=== PATIENT | female | born 1945 | race Caucasian/White ===

== ENCOUNTER 2020-11-09 10:38 | Outpatient (CLI) | payer MEDICARE, OTHER, SELFPAY ==
--- NOTE | 2020-11-09 10:43 | MM_ITS ---
WS: [id number] BILATERAL SCREENING DIGITAL MAMMOGRAM WITH CAD HISTORY: SCREENING COMPARISON: 09/09/2019, 09/01/2018, 08/21/2017 Bilateral CC and MLO views submitted. Computer aided detection analyzed. Breast composition: There are scattered areas of fibroglandular density. No suspicious masses, microc alcifications or architectural distortion. Benign breast arterial calcifications. Asymmetry central t o the nipple on the RIGHT CC projection on the posterior breast is similar to 2017. MM/[id number] IMPRESSION: BI-RADS: 2-Benign FOLLOW UP: 1 Year Follow-up
== END 2020-11-09 10:39 | disposition home or self-care (01) ==
LOC: RADSHAW 10:42
PROVIDERS: Family Provider Nurse Practitioner Family; Visit Provider Nurse Practitioner Family
DX: Z12.31 Encounter for screening mammogram for malignant neoplasm of breast (principal)
CPT/HCPCS: 77067

== ENCOUNTER → 2021-09-04 09:45 | Outpatient (BNVA) | payer MEDICARE, OTHER, SELFPAY | PROVIDERS: Family Provider Nurse Practitioner Family; PCP Nurse Practitioner Family; Visit Provider Nurse Practitioner Family | DX: R30.0 Dysuria (principal); N39.0 Urinary tract infection, site not specified | CPT/HCPCS: 87077; 87086; 87184 ==

== ENCOUNTER 2022-01-10 10:38 | Outpatient (CLI) | payer MEDICARE, OTHER, SELFPAY ==
--- NOTE | 2022-01-10 10:54 | MM_ITS ---
WS: [id number] BILATERAL 3D TOMOSYNTHESIS DIGITAL SCREENING MAMMOGRAPHY WITH CAD CLINICAL INFORMATION: SCREENING HISTORY: Screening mammogram. No current complaints. COMPARISON: November 09, 2020 TECHNIQUE: Bilateral CC and MLO views. FINDINGS: Scattered fibroglandular densities bilaterally. Punctate calcifications. Vascular calcifications. No suspicious focal mass, asymmetry, calcifications, or architectural distortion. No evidence of maligna ncy. MM/[place] [id number] IMPRESSION: BI-RADS: 2-Benign FOLLOW UP: 1 Year Follow-up Recommend return to annual screening mammography.
== END 2022-01-10 10:39 | disposition home or self-care (01) ==
LOC: RADSHAW 10:43
PROVIDERS: PCP Nurse Practitioner Family; Visit Provider Nurse Practitioner Family
DX: Z12.31 Encounter for screening mammogram for malignant neoplasm of breast (principal)
CPT/HCPCS: 77063; 77067

== ENCOUNTER 2022-01-20 11:04 | Inpatient (IN) | payer MEDICARE, OTHER, SELFPAY ==
[2022-01-20] VITALS (19 sets, daily range): BP systolic 110–187; BP diastolic 54–100; PULSE 56–97; RESP 14–18; TEMP 36.2–37.5; O2SAT 93–98; BMI 25.0
--- NOTE | 2022-01-20 | SCC_ITS ---
Procedure done: IM nail for right IT fracture 73.7 seconds of fluoroscopic guidance, for a cumulative dose of 12.51 mGy, was provided to Dr. Albert by the radiology department. C-arm images of the right hip were saved for the patient's permanent record. [facility]
--- NOTE | 2022-01-20 | XR_ITS ---
WS: [id number] Exam: XR hip RT 2-3V wo/w pel* [id number] Date/Time of Exam: 01/20/2022 6:17 PM Reason For Exam: OR PICS AP and lateral intraoperative C-arm images of the right hip are submitted for evaluation. Previously noted comminuted intertrochanteric fracture has been stabilized with an intramedullary jojo and femoral neck screw. The fracture appears to be stabilized in satisfactory position for healing. An additional orthopedic plate and screws partially visualized in the mid femur. No other significant finding on this limited series.
--- NOTE | 2022-01-20 11:47 | XR_ITS ---
WS: [id number] Exam: XR hip RT 2-3V wo/w pel* [id number] Date/Time of Exam: 01/20/2022 11:56 AM Reason For Exam: fall pain There is a comminuted intertrochanteric fracture of the right hip. There is avulsion and medial separ ation of the lesser trochanter. No other fractures are seen. Moderate degenerative narrowing of the j oint compartment. A cortical plate and screws are partially visualized in the upper femoral diaphysis . XR/XR hip RT 2-3V wo/w pel* [id number] IMPRESSION: 1. Comminuted intertrochanteric fracture with slight coxa vera deformity. 2. Moderate degenerative narrowing of the joint compartment. Osteopenia.
--- NOTE | 2022-01-20 12:21 | XR_ITS ---
WS: [id number] Exam: XR chest 1V portable [id number] Date/Time of Exam: 01/20/2022 12:26 PM Reason For Exam: dyspnea/cough Comparison 10/22/2019. The lungs are clear and fully expanded. Heart size is within normal limits. Probable large hiatal her bernice. No pleural effusion. The mediastinum is normal in contour. Regional bony elements are intact. XR/XR chest 1V portable [id number] IMPRESSION: 1. No acute cardiopulmonary finding. 2. Probable large hiatal hernia.
--- NOTE | 2022-01-20 12:21 | ECG_ITS ---
[facility] Test Date: 2022-01-20 Pat Name: Samir Gillepsie Department: Room: Gender: Female [employer] Technician: : 1945 Requested By: Manohar Hobson Order Number: [id number] Shruti MD: Stef Bellamy M.D. Measurements Intervals [place] Rate: 56 P: 42 NC: 189 QRS: 16 QRSD: 99 T: 56 QT: 446 QTc: 432 Interpretive Statements SINUS BRADYCARDIA NONSPECIFIC T-WAVE ABNORMALITY Compared to ECG 03/27/2016 21:03:15 Sinus rhythm no longer present T-wave abnormality still present Electronically Signed On 01-20-2022 22:02:45 CDT by Stef Bellamy M.D. [id number]
--- NOTE | 2022-01-20 12:24 | W.ED.FALL ---
HPI - Fall General: Chief Complaint: Fall Stated Complaint: FALL, R HIP, R UPPER LEG PAIN Time Seen by Provider: 01/20/22 11:07 Source: patient Mode of arrival: EMS Limitations: no limitations History of Present Illness: 76-year-old female presents emergency room complaining of right hip pain. 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 She eventually did pull herself up and leaned against the building EMS was called on arrival there she is not able to bear weight she was noted to have an externally rotated and shortened right leg. She previous had a right knee arthroplasty. She not strike her head she not lose consciousness she is not on any anticoagulants. MD complaint: fall Onset (ago): minute(s) Fall from: standing Fall witnessed: no Place fall occurred: home Loss of consciousness: None Prolonged down time: no Symptoms prior to fall: none Context: tripped/slipped Location of injury - extremities: Right: thigh (Hip) Severity: mild Quality: sharp Associated symptoms-after fall: Denies abdominal pain, chest pain, confusion, difficulty walking, headache(s), hematuria, lightheadedness, neck pain, numbness, short of breath, vertigo or weakness Review of Systems Const: Denies: fever(s) or chills ENMT: Denies: throat pain, nasal discharge or nasal congestion Card: Denies: chest pain, palpitations or lightheadedness Resp: Denies: dyspnea, productive cough, non-productive cough or wheezing GI: Denies: abdominal pain, nausea or vomiting : Denies: difficulty voiding, dysuria, urinary frequency, urinary urgency or hematuria Musc: Reports: extremity pain; Denies: neck pain or back pain Neuro: Denies: headache(s), difficulty walking, vertigo or confusion PFSH ED PFSH: Medical History Blind right eye Bradycardia Cataract COVID-19 vaccine administered Moderna x 2 doses GERD (gastroesophageal reflux disease) Gout History of GI bleed related to nsaid use HTN (hypertension) Hypothyroidism Osteoarthritis Osteoporosis Urinary incontinence Surgical History History of hysterectomy History of open reduction and internal fixation (ORIF) procedure Right femur History of total left knee replacement (~2015) History of total right knee replacement (~2013) Family History Mother Cancer leukemia Father CAD (coronary artery disease) Family/Other Diabetes Denies family history of Stroke Social History Smoking and tobacco status: never smoked Alcohol intake: never Substance/Drug Use: never Marital status: / Female Reproductive History: Date of last menstrual period: 08/23/21 Physical Exam Const: GENERAL APPEARANCE: cooperative and comfortable ORIENTATION/CONSCIOUSNESS: Yes awake, Yes oriented to person, Yes oriented to place and Yes oriented to time HENMT: COMMON NORMALS: normocephalic, atraumatic and hearing grossly normal bilaterally HEAD & SCALP: normocephalic and atraumatic Neck/C-Spine: COMMON NORMALS: no JVD Resp: COMMON NORMALS: normal respiratory effort, No retractions, No use of accessory muscles and clear to auscultation bilaterally AUSCULTATION: clear to auscultation bilaterally Cardio: COMMON NORMALS: no JVD, regular rate, regular rhythm and No murmurs present (Cardio) RATE: regular rate RHYTHM: regular rhythm GI: COMMON NORMALS: Soft to palpation and No hepatosplenomegaly present AUSCULTATION: Yes normoactive bowel sounds PALPATION: Yes Soft to palpation, No Tenderness to palpation present (GI), No Guarding due to palpation present (GI) and Yes No hepatosplenomegaly present Extremity: COMMON NORMALS: normal to inspection, capillary refill normal, no clubbing, cyanosis or edema, no calf tenderness and no pedal edema OTHER: Right leg externally rotated and shortened neurovascularly intact. Neuro: SENSORIUM/ORIENTATION: Yes oriented to person, Yes oriented to place and Yes oriented to time Skin: COMMON NORMALS: no rashes or lesions noted GENERAL SKIN EXAM: no rashes or lesions noted Course Vital Signs: Vital signs: Vital Signs Temperature 98.2 F 01/22/22 15:53 Pulse Rate 69 01/22/22 15:53 Respiratory Rate 13 01/22/22 15:53 Blood Pressure 107/59 01/22/22 15:53 Pulse Oximetry 96 01/22/22 15:53 MDM - Fall Medical Decision Making Right intertrochanteric hip fracture discussed with Dr. Albert he plans to do the procedure today yet. Will discuss with Duy to admit for medical management. Medical Records I reviewed the patient's medical records. Lab Data I reviewed the patient's lab results. : 01/22/22 04:42 01/21/22 06:00 Radiology Impressions Hip/Pelvis X-Ray 01/20/22 11:47 IMPRESSION: 1. Comminuted intertrochanteric fracture with slight coxa vera deformity. 2. Moderate degenerative narrowing of the joint compartment. Osteopenia. Chest X-Ray 01/20/22 12:21 IMPRESSION: 1. No acute cardiopulmonary finding. 2. Probable large hiatal hernia. Laboratory Results WBC 12.5 10^3/uL (4.0-10.0) H 01/20/22 11:50 RBC 4.28 10^6/uL (4.1-5.3) 01/20/22 11:50 Hgb 14.0 g/dL (11.5-15.3) 01/20/22 11:50 Hct 42.8 % (37.0-47.0) 01/20/22 11:50 MCV 100.0 fl (81-99) H 01/20/22 11:50 MCH 32.7 pg (28.0-34.0) 01/20/22 11:50 MCHC 32.7 g/dL (30.0-36.0) 01/20/22 11:50 RDW 14.5 % (12.1-15.1) 01/20/22 11:50 Plt Count 302 10^3/cmm (130-400) 01/20/22 11:50 MPV 10.2 fL (7.4-10.4) 01/20/22 11:50 Neut % (Auto) 84.6 % 01/20/22 11:50 Lymph % (Auto) 10.1 % 01/20/22 11:50 [place] % (Auto) 3.7 % 01/20/22 11:50 Eos % (Auto) 0.6 % 01/20/22 11:50 Baso % (Auto) 0.5 % 01/20/22 11:50 Neut # (Auto) 10.60 10^3/uL (1.8-7.7) H 01/20/22 11:50 Lymph # (Auto) 1.3 10^3/uL (0.8-4.8) 01/20/22 11:50 [place] # (Auto) 0.5 10^3/uL (0.2-0.9) 01/20/22 11:50 Eos # (Auto) 0.1 10^3/uL (0.0-0.8) 01/20/22 11:50 Baso # (Auto) 0.1 10^3/uL (0.0-0.1) 01/20/22 11:50 Nucleated RBC % (auto) 0 % 01/20/22 11:50 Nucleated RBCs # 0.0 /100WBC 01/20/22 11:50 Sodium 138 mmol/L (136-145) 01/20/22 11:50 Potassium 4.2 mmol/L (3.5-5.1) 01/20/22 11:50 Chloride 99 mmol/L (98-107) 01/20/22 11:50 Carbon Dioxide 27 mmol/L (22-29) 01/20/22 11:50 Anion Gap 16.2 (5-19) 01/20/22 11:50 BUN 19 mg/dL (8-23) 01/20/22 11:50 Creatinine 1.0 mg/dL (0.5-0.9) H 01/20/22 11:50 GFR Calculation Not Reportable 01/20/22 11:50 Glucose 143 mg/dL (65-115) H 01/20/22 11:50 Calculated Osmolality 291 mOsm/kg (285-295) 01/20/22 11:50 Calcium 10.3 mg/dL (8.5-10.5) 01/20/22 11:50 Total Bilirubin 0.3 mg/dL (0.15-1.2) 01/20/22 11:50 AST 18 U/L (0-32) 01/20/22 11:50 ALT 16 U/L (0-33) 01/20/22 11:50 Alkaline Phosphatase 80 IU/L (35-105) 01/20/22 11:50 Total Protein 7.3 g/dL (6.6-8.7) 01/20/22 11:50 Albumin 4.6 g/dL (3.5-5.2) 01/20/22 11:50 Globulin 2.7 g/dL (1.3-4.6) 01/20/22 11:50 Urine Color Yellow (Yellow) 01/20/22 05:52 Urine Appearance Hazy (CLEAR) A 01/20/22 05:52 Urine pH 5 (5-7) 01/20/22 05:52 Ur Specific [place] 1.020 (1.005-1.030) 01/20/22 05:52 Urine Protein Neg (Negative) 01/20/22 05:52 Urine Glucose (UA) Norm (Normal) 01/20/22 05:52 Urine Ketones Negative (Negative) 01/20/22 05:52 Urine Blood Neg (Negative) 01/20/22 05:52 Urine Nitrate Negative (Negative) 01/20/22 05:52 Urine Bilirubin Neg (Negative) 01/20/22 05:52 Urine Urobilinogen Norm mg/dL (Negative) 01/20/22 05:52 Ur Leukocyte Esterase 2+ (Negative) H 01/20/22 05:52 Urine RBC None /hpf (0-2) 01/20/22 05:52 Urine WBC >100 /hpf (0-5) H 01/20/22 05:52 Ur Squamous Epith Cells 0-4 /hpf (0-5) H 01/20/22 05:52 Amorphous Sediment Not Reportable 01/20/22 05:52 Urine Bacteria 1+ /hpf (NONE) H 01/20/22 05:52 Discharge Plan Discharge Patient Disposition: Admitted As Inpatient Admit Provider: Sherley Marmolejo Clinical Impression: Thyroid disease Closed intertrochanteric fracture of right femur Qualifiers: Encounter type: initial encounter Fracture alignment: displaced Qualified Code(s): S72.141A - Displaced intertrochanteric fracture of right femur, initial encounter for closed fracture HTN (hypertension) Qualifiers: Hypertension type: primary hypertension Qualified Code(s): I10 - Essential (primary) hypertension GERD (gastroesophageal reflux disease) Qualifiers: Esophagitis presence: without esophagitis Qualified Code(s): K21.9 - Gastro-esophageal reflux disease without esophagitis Condition: Stable Coding Level of Care Code ED Patrol Police Lieutenant for Chg Fwd Exam Comprehensive
[2022-01-20 12:28] LABS: Basophils # 0.1 10^3/uL (0.0-0.1); Basophils % 0.5 %; Eosinophils # 0.1 10^3/uL (0.0-0.8); Eosinophils % 0.6 %; Hematocrit 42.8 % (37.0-47.0); Lymphocytes # 1.3 10^3/uL (0.8-4.8); Lymphocytes % 10.1 %; Mean Corpuscular HGB Conc 32.7 g/dL (30.0-36.0); Mean Corpuscular Hemoglobin 32.7 pg (28.0-34.0); Mean Platelet Volume 10.2 fL (7.4-10.4); Monocytes # 0.5 10^3/uL (0.2-0.9); Monocytes % 3.7 %; Neutrophils % 84.6 %; Nucleated Red Blood Cells % 0 %; Platelet Count 302 10^3/cmm (130-400); Red Blood Count 4.28 10^6/uL (4.1-5.3); Red Cell Distribution Width 14.5 % (12.1-15.1); White Blood Count 12.5 10^3/uL (4.0-10.0)
[2022-01-20 12:49] LABS: Alanine Aminotransferase 16 U/L (0-33); Albumin Level 4.6 g/dL (3.5-5.2); Alkaline Phosphatase 80 IU/L (35-105); Anion Gap 16.2 (5-19); Aspartate Amino Transferase 18 U/L (0-32); Blood Urea Nitrogen 19 mg/dL (8-23); Calcium 10.3 mg/dL (8.5-10.5); Carbon Dioxide 27 mmol/L (22-29); Chloride 99 mmol/L (98-107); Globulin 2.7 g/dL (1.3-4.6); Glucose 143 mg/dL (65-115); Osmolality Calculated 291 mOsm/kg (285-295); Potassium 4.2 mmol/L (3.5-5.1); Sodium 138 mmol/L (136-145); Total Bilirubin 0.3 mg/dL (0.15-1.2); Total Protein 7.3 g/dL (6.6-8.7)
[2022-01-20] MEDS: ondansetron 2 mg/ML SDV 2 mL 4 MG IVP (13:09)
[2022-01-20] MEDS: morphine 4 mg/mL SDV 1 mL IVP (13:09)
--- NOTE | 2022-01-20 14:33 | P.HP_ITS ---
Providers/Chief Complaint Admitting Physician: Sherley Marmolejo MD Primary Care Provider: Janeth Morton APN Chief Complaint: FALL, R HIP, R UPPER LEG PAIN History of Present Illness Samir Gillespie is a 76 year old female who presented to the emergency room with right lower extremity and hip pain after a fall. She was walking out to the barn to feed her cats when she missed stepped over some concrete and subsequently spun around and fell down landing on her right hip. She had a po cket knife in her pocket. She had also had a can of cat food in her pocket but it came out before she landed on it. The knife was not open. She was unable to get up. She had a life alert and was able to get help with this. EMS came out and stabilized her. One of them actually also fed the cats. Patient denies any preceding symptoms reporting that this is simply a mechanical fall. She is no rmally fairly active taking care of things around her property including gardening, walking out to the barn to wash her close and attending to all of her own ADLs. In the emergency room she was found to have comminuted intratrochanteric fracture of the right leg. She has had previous right knee re placement as well as right femur fracture requiring surgical intervention. No history of anesthesia difficulties, bleeding disorder, clotting disorder, renal dysfunction, coronary artery disease or pulmonary disease. Daughter indicates that she did have some mental status changes postoperatively after her femur fracture repair which she was very confused and required a sitter for safety. Patient's primary complaint is that of discomfort with any amount of movement. Patient received 2 doses of COVID vaccine, has not had COVID. Review of Systems Const: Denies: fever(s) or chills Eyes: Reports: other (blind right eye, can see light) ENMT: Denies: throat pain or nasal congestion Card: Denies: chest pain, palpitations, edema, dyspnea on exertion or orthopnea Resp: Denies: dyspnea, productive cough, non-productive cough or chest congestion GI: Denies: abdominal pain, nausea, vomiting, diarrhea, constipation or hematochezia : Denies: difficulty voiding Musc: Reports: back pain (after being in bed for a while here in ER) and extremity pain (right hip) Skin/Breast: Denies: rash, pruritus or sores Neuro: Denies: numbness in extremities, weakness in extremities or difficulty walking Endo: Denies: tired all the time Cullen/Lymph: Denies: easy bruising or easy bleeding All/Imm: Reports: seasonal rhinorrhea Medications/Allergies Home Medications Medication Instructions Recorded Confirmed Last Taken Type allopurinol 300 mg tablet 300 mg PO QA 04/18/21 01/20/22 01/20/22 08:30 History levothyroxine 88 mcg tablet 88 mcg PO DAILY@04/18/21 01/20/22 01/19/22 History lisinopril 10 mg tablet 10 mg PO QA 04/18/21 01/20/22 01/20/22 08:30 History multivitamin 1 tab PO QA 04/18/21 01/20/22 01/20/22 History omega-3 fatty acids 1,000 mg 1,000 mg PO QA 04/18/21 01/20/22 01/20/22 08:30 History capsule (Fish Oil Concentrate) oxybutynin chloride 10 mg 10 mg PO QA 04/18/21 01/20/22 01/20/22 08:30 History tablet,extended release 24 hr pantoprazole 40 mg tablet,delayed 40 mg PO QA 04/18/21 01/20/22 01/20/22 08:30 History release cetirizine 10 mg capsule (All Day 10 mg PO DAILY 10/16/21 01/20/22 01/20/22 08:30 History Allergy (cetirizine)) Prevagen 1 cap PO QA 01/20/22 01/20/22 01/20/22 History cyanocobalamin (vitamin B-12) 1,000 mcg SUBLINGUAL QA 01/20/22 01/20/22 01/20/22 History 1,000 mcg sublingual tablet dexamethasone 0.5 mg/5 mL oral See Rx Instructions .ROUTE .COMPLEX 01/20/22 01/20/22 12/24/21 History elixir see pharmacy comment timolol maleate 0.5 % eye drops 1 drp OPHTHALMIC (EYE) BEDTIME 01/20/22 01/20/22 01/19/22 History Allergies Allergy/AdvReac Type Severity Reaction Status Date / Time celecoxib [From Celebrex] Allergy Unknown Verified 01/20/22 13:02 NSAIDS (Non-Steroidal Allergy Unknown Verified 01/20/22 13:02 Anti-Inflamma sulfamethoxazole Allergy Unknown Verified 01/20/22 13:02 [From Bactrim] trimethoprim [From Bactrim] Allergy Unknown Verified 01/20/22 13:02 PFSH Acute PFSH: Medical History (Updated 01/20/22 @ 15:41 by Sherley Marmolejo MD) Blind right eye Bradycardia Cataract COVID-19 vaccine administered Moderna x 2 doses GERD (gastroesophageal reflux disease) Gout History of GI bleed related to nsaid use HTN (hypertension) Hypothyroidism Osteoarthritis Osteoporosis Urinary incontinence Surgical History (Updated 01/20/22 @ 15:17 by Sherley Marmolejo MD) History of hysterectomy History of open reduction and internal fixation (ORIF) procedure Right femur History of total left knee replacement (~2015) History of total right knee replacement (~2013) Family History (Updated 01/20/22 @ 14:39 by Sherley Marmolejo MD) Mother Cancer leukemia Father CAD (coronary artery disease) Family/Other Diabetes Denies family history of Stroke Social History (Updated 01/20/22 @ 14:39 by Sherley Marmolejo MD) Smoking and tobacco status: never smoked Alcohol intake: never Substance/Drug Use: never Marital status: / Female Reproductive History: Date of last menstrual period: 08/23/21 Vitals/I&O/Wt Last Vital Signs Temp 98.1 F 01/20/22 11:35 Pulse 61 01/20/22 13:22 Resp 16 01/20/22 13:22 BP 124/54 01/20/22 13:22 Pulse Ox 95 01/20/22 13:22 Weight last 48 hrs Weight 72.575 kg Physical Exam Narrative: Constitutional: Awake and alert, cooperative HEENT: Normocephalic, atraumatic, extraocular movements are intact, pupils are reactive, oropharynx with dry mucous membranes but otherwise clear Neck: Supple Respiratory: Clear to auscultation bilaterally without any rales rhonchi or wheezes Cardiovascular: Regular rate and rhythm, no murmurs, gallops or rubs Abdomen: Soft, nontender, positive bowel sounds : Presently deferred Extremities: Right lower extremity externally rotated and shortened, still has her jeans on some unable to visualize the right hip for signs of bruising but has pain with any degree of movement in the right groin radiating through, trace edema pretibial bilaterally. Has bony hypertrophy of Heberden's and Les's nodes bilateral hands without any warmth or erythema acutely noted and no definitive tophi appreciated at the joints. Skin: Visible skin dry, minimal minor bruises or scratches although area of trauma not currently able to be visualized Neuro: Speech is clear, face symmetric, moves both hands, wiggles toes bilaterally with sensation intact at both toes to touch Psych: Normal affect Data : 01/20/22 11:50 01/20/22 11:50 Other Labs: Radiology Impressions Hip/Pelvis X-Ray 01/20/22 11:47 IMPRESSION: 1. Comminuted intertrochanteric fracture with slight coxa vera deformity. 2. Moderate degenerative narrowing of the joint compartment. Osteopenia. Chest X-Ray 01/20/22 12:21 IMPRESSION: 1. No acute cardiopulmonary finding. 2. Probable large hiatal hernia. Laboratory Results WBC 12.5 10^3/uL (4.0-10.0) H 01/20/22 11:50 RBC 4.28 10^6/uL (4.1-5.3) 01/20/22 11:50 Hgb 14.0 g/dL (11.5-15.3) 01/20/22 11:50 Hct 42.8 % (37.0-47.0) 01/20/22 11:50 MCV 100.0 fl (81-99) H 01/20/22 11:50 MCH 32.7 pg (28.0-34.0) 01/20/22 11:50 MCHC 32.7 g/dL (30.0-36.0) 01/20/22 11:50 RDW 14.5 % (12.1-15.1) 01/20/22 11:50 Plt Count 302 10^3/cmm (130-400) 01/20/22 11:50 MPV 10.2 fL (7.4-10.4) 01/20/22 11:50 Neut % (Auto) 84.6 % 01/20/22 11:50 Lymph % (Auto) 10.1 % 01/20/22 11:50 [place] % (Auto) 3.7 % 01/20/22 11:50 Eos % (Auto) 0.6 % 01/20/22 11:50 Baso % (Auto) 0.5 % 01/20/22 11:50 Neut # (Auto) 10.60 10^3/uL (1.8-7.7) H 01/20/22 11:50 Lymph # (Auto) 1.3 10^3/uL (0.8-4.8) 01/20/22 11:50 [place] # (Auto) 0.5 10^3/uL (0.2-0.9) 01/20/22 11:50 Eos # (Auto) 0.1 10^3/uL (0.0-0.8) 01/20/22 11:50 Baso # (Auto) 0.1 10^3/uL (0.0-0.1) 01/20/22 11:50 Nucleated RBC % (auto) 0 % 01/20/22 11:50 Nucleated RBCs # 0.0 /100WBC 01/20/22 11:50 Sodium 138 mmol/L (136-145) 01/20/22 11:50 Potassium 4.2 mmol/L (3.5-5.1) 01/20/22 11:50 Chloride 99 mmol/L (98-107) 01/20/22 11:50 Carbon Dioxide 27 mmol/L (22-29) 01/20/22 11:50 Anion Gap 16.2 (5-19) 01/20/22 11:50 BUN 19 mg/dL (8-23) 01/20/22 11:50 Creatinine 1.0 mg/dL (0.5-0.9) H 01/20/22 11:50 GFR Calculation Not Reportable 01/20/22 11:50 Glucose 143 mg/dL (65-115) H 01/20/22 11:50 Calculated Osmolality 291 mOsm/kg (285-295) 01/20/22 11:50 Calcium 10.3 mg/dL (8.5-10.5) 01/20/22 11:50 Total Bilirubin 0.3 mg/dL (0.15-1.2) 01/20/22 11:50 AST 18 U/L (0-32) 01/20/22 11:50 ALT 16 U/L (0-33) 01/20/22 11:50 Alkaline Phosphatase 80 IU/L (35-105) 01/20/22 11:50 Total Protein 7.3 g/dL (6.6-8.7) 01/20/22 11:50 Albumin 4.6 g/dL (3.5-5.2) 01/20/22 11:50 Globulin 2.7 g/dL (1.3-4.6) 01/20/22 11:50 A&P Assessment and plan (1) Fall: Status: Acute Qualifiers: Encounter type: initial encounter Qualified Code(s): W19.XXXA - Unspecified fall, initial encounter (2) Closed intertrochanteric fracture of right femur: Status: Acute Qualifiers: Encounter type: initial encounter Fracture alignment: displaced Qualified Code(s): S72.141A - Displaced intertrochanteric fracture of right femur, initial encounter for closed fracture (3) Chronic steroid use: Intermittent dexamethasone injections Status: Acute (4) Osteoporosis: Status: Chronic Qualifiers: Osteoporosis type: other Presence of current pathological fracture: with current pathological fracture Encounter type: initial encounter Qualified Code(s): M80.80XA - Other osteoporosis with current pathological fracture, unspecified site, initial encounter for fracture (5) HTN (hypertension): Status: Chronic Qualifiers: Hypertension type: primary hypertension Qualified Code(s): I10 - Essential (primary) hypertension (6) Bradycardia: Status: Chronic (7) Hypothyroidism: Status: Chronic Qualifiers: Hypothyroidism type: acquired Qualified Code(s): E03.9 - Hypothyroidism, unspecified (8) Gout: Status: Chronic Qualifiers: Chronicity: chronic (9) GERD (gastroesophageal reflux disease): Status: Chronic Qualifiers: Esophagitis presence: without esophagitis Qualified Code(s): K21.9 - Gastro-esophageal reflux disease without esophagitis (10) Osteoarthritis: Status: Chronic Qualifiers: Osteoarthritis location: multiple joints Osteoarthritis type: primary Qualified Code(s): M15.9 - Polyosteoarthritis, unspecified Plan Inpatient admission Orthopedic consultation for surgical intervention N.p.o. until surgery can be done, tentative plan for later today Pain control as needed Bowel regimen Check urinalysis [place] catheter placement perioperatively Discussed with patient risk of fractures with chronic steroid use Vitamin D and calcium supplementation Monitor for need to stress dose steroids, has received dexamethasone monthly for the last 2 months and was due to get another dose this coming Thursday Hold home lisinopril preoperatively, monitor blood pressures Telemetry monitoring x24 hours, has known bradycardia, asymptomatic, has been seen by Dr. Brush in the past Continue home levothyroxine Continue home allopurinol Continue home PPI Continue home cetirizine for allergies, oxybutynin and timolol eyedrops Continue multivitamin Currently with SCDs for DVT prophylaxis though anticipate transition to Lovenox postoperatively Anticipate disposition to skilled facility for rehabilitation prior to eventual discharge back home. Has been an active lady taking care of her property and ADLs without difficulties which hopefully will build her well in the recovery process. Findings, concerns and plans were discussed with patient as well as her daughter and both were given an opportunity to ask questions Full code Attestations Medical Necessity Statement*: Anticipated stay greater than two midnights in this patient with fracture after a fall at home that will require surgical intervention. She has had previous bilateral knee replacement and right femur fracture requiring surgical intervention now with right hip fracture that will also require repair. Plans are as indicated. 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 Fall W19.XXXA Encounter type: initial encounter Closed intertrochanteric fracture of right femur S72.141A Encounter type: initial encounter Fracture alignment: displaced Chronic steroid use Osteoporosis M80.80XA Osteoporosis type: other Presence of current pathological fracture: with current pathological fracture Encounter type: initial encounter HTN (hypertension) I10 Hypertension type: primary hypertension GERD (gastroesophageal reflux disease) K21.9 Esophagitis presence: without esophagitis Gout M10.9 Chronicity: chronic Hypothyroidism E03.9 Hypothyroidism type: acquired Bradycardia R00.1 Osteoarthritis M15.9 Osteoarthritis location: multiple joints Osteoarthritis type: primary
--- NOTE | 2022-01-20 16:29 | P.ANESASSM_ITS ---
Pre-Anesthetic Assessment Height/Weight: Height 1.7 m Weight 72.575 kg Temp Pulse Resp BP Pulse Ox 98.1 F 61 16 124/54 95 01/20/22 11:35 01/20/22 13:22 01/20/22 13:22 01/20/22 13:22 01/20/22 13:22 Preop Diagnosis: Right femur fracture Operation Date: 01/20/22 20:00 Proposed Procedures p Trochanteric Femoral Nail(Right) - Good Albert, DO Familial anesthetic complications: Post operative confusion lasting 3 days Was Beta Sherice taken within 24 hours: N/A Was Clonidine taken within 24 hours: N/A Social No alcohol and No tobacco Exam alert, oriented x 3, clear to auscultation bilaterally and regular rate & rhythm Airway Submandibular: within normal limits Cervical ROM: within normal limits Mallampati: Class II Dentition: chipped Comments: Comments: Missing Pulmonary None reported CV/HEM Hypertension METS > 4 Sinus bradycardia Chronic Renal Insufficiency GI Gastroesophageal Reflux Disease Metabolic Thyroid Disease Musc/skel Osteoarthritis/DJD GoUT Neuropsych No LOC Anesthetic Plan ASA status: 3 Anesthesia: Anesthesia Evaluation and General Other: We discussed risk and benefits of general vs spinal anesthesia including DVT risk, infection, paralysis/catastrophic nerve injury, back bruising/pain, PDPH, conversion to general in case of spinal, PONV, sore throat (sometimes severe), corneal abrasion, positioning and peripheral nerve injuries, life threatening allergic reaction, post operative ICU admission requiring prolonged intubation, stroke, heart attack, , post operative delirium and/or post operative cognitive decline, and rare incidences of recall (under general anesthesia). Patient prefers general. Risk of > 500 ml blood loss (7ml/kg in children): No Medications/Allergies Home Medications Medication Instructions Recorded Confirmed Last Taken Type allopurinol 300 mg tablet 300 mg PO QAM 04/18/21 01/20/22 01/20/22 08:30 History levothyroxine 88 mcg tablet 88 mcg PO DAILY@04/18/21 01/20/22 01/19/22 History lisinopril 10 mg tablet 10 mg PO QAM 04/18/21 01/20/22 01/20/22 08:30 History multivitamin 1 tab PO QAM 04/18/21 01/20/22 01/20/22 History omega-3 fatty acids 1,000 mg 1,000 mg PO QAM 04/18/21 01/20/22 01/20/22 08:30 History capsule (Fish Oil Concentrate) oxybutynin chloride 10 mg 10 mg PO QAM 04/18/21 01/20/22 01/20/22 08:30 History tablet,extended release 24 hr pantoprazole 40 mg tablet,delayed 40 mg PO QAM 04/18/21 01/20/22 01/20/22 08:30 History release cetirizine 10 mg capsule (All Day 10 mg PO DAILY 10/16/21 01/20/22 01/20/22 08:30 History Allergy (cetirizine)) Prevagen 1 cap PO QAM 01/20/22 01/20/22 01/20/22 History cyanocobalamin (vitamin B-12) 1,000 mcg SUBLINGUAL QAM 01/20/22 01/20/22 01/20/22 History 1,000 mcg sublingual tablet dexamethasone 0.5 mg/5 mL oral See Rx Instructions .ROUTE .COMPLEX 01/20/22 01/20/22 12/24/21 History elixir see pharmacy comment timolol maleate 0.5 % eye drops 1 drp OPHTHALMIC (EYE) BEDTIME 01/20/22 01/20/22 01/19/22 History Allergies Allergy/AdvReac Type Severity Reaction Status Date / Time celecoxib [From Celebrex] Allergy Unknown Verified 01/20/22 13:02 NSAIDS (Non-Steroidal Allergy Unknown Verified 01/20/22 13:02 Anti-Inflamma sulfamethoxazole Allergy Unknown Verified 01/20/22 13:02 [From Bactrim] trimethoprim [From Bactrim] Allergy Unknown Verified 01/20/22 13:02 Additional Medication Information I personally reviewed home medication list and medications received day of admission thus far. [facility] Anesthesia Medical History Blind right eye Bradycardia Cataract COVID-19 vaccine administered Moderna x 2 doses GERD (gastroesophageal reflux disease) Gout History of GI bleed related to nsaid use HTN (hypertension) Hypothyroidism Osteoarthritis Osteoporosis Urinary incontinence Surgical History History of hysterectomy History of open reduction and internal fixation (ORIF) procedure Right femur History of total left knee replacement (~2015) History of total right knee replacement (~2013) Family History Mother Cancer leukemia Father CAD (coronary artery disease) Family/Other Diabetes Denies family history of Stroke Social History Smoking and tobacco status: never smoked Alcohol intake: never Substance/Drug Use: never Marital status: / Female Reproductive History Date of last menstrual period: 08/23/21 Data Anesthesia : 01/20/22 11:50 01/20/22 11:50 Short CBC 01/20/22 Range/Units 11:50 WBC 12.5 H (4.0-10.0) 10^3/uL Hgb 14.0 (11.5-15.3) g/dL Hct 42.8 (37.0-47.0) % MCV 100.0 H (81-99) fl Plt Count 302 (130-400) 10^3/cmm Neut % (Auto) 84.6 % Neut # (Auto) 10.60 H (1.8-7.7) 10^3/uL BMP 01/20/22 11:50 Sodium 138 Potassium 4.2 Chloride 99 Carbon Dioxide 27 BUN 19 Creatinine 1.0 H Glucose 143 H Calcium 10.3 Liver Function 01/20/22 Range/Units 11:50 Total Bilirubin 0.3 (0.15-1.2) mg/dL AST 18 (0-32) U/L ALT 16 (0-33) U/L Alkaline Phosphatase 80 (35-105) IU/L Albumin 4.6 (3.5-5.2) g/dL Cardiac Studies: Holter Monitor 01/04/21
--- NOTE | 2022-01-20 16:41 | PM.CONSULT ---
Providers/Reason For Consult Consulting Physician/Specialty*: hospitalist Reason for Consult*: right hip fx Attending Physician: Sherley Marmolejo MD Primary Care Provider: Janeth Morton APN History of Present Illness History of Present Illness Samir Gillespie is a 76 year old female right lower extremity and hip pain after a fall.? She was walking out to the barn to feed her cats when she missed stepped over some concrete and subsequently spun around and fell down landing on her right hip.?? Review of Systems Const: Denies: fever(s) or chills Eyes: Reports: other (blind right eye, can see light) ENMT: Denies: throat pain or nasal congestion Card: Denies: chest pain, palpitations, edema, dyspnea on exertion or orthopnea Resp: Denies: dyspnea, productive cough, non-productive cough or chest congestion GI: Denies: abdominal pain, nausea, vomiting, diarrhea, constipation or hematochezia : Denies: difficulty voiding Musc: Reports: back pain (after being in bed for a while here in ER) and extremity pain (right hip) Skin/Breast: Denies: rash, pruritus or sores Neuro: Denies: numbness in extremities, weakness in extremities or difficulty walking Endo: Denies: tired all the time Cullen/Lymph: Denies: easy bruising or easy bleeding All/Imm: Reports: seasonal rhinorrhea Medications/Allergies Home Medications Medication Instructions Recorded Confirmed Last Taken Type allopurinol 300 mg tablet 300 mg PO QA 04/18/21 01/20/22 01/20/22 08:30 History levothyroxine 88 mcg tablet 88 mcg PO DAILY@04/18/21 01/20/22 01/19/22 History lisinopril 10 mg tablet 10 mg PO QA 04/18/21 01/20/22 01/20/22 08:30 History multivitamin 1 tab PO QA 04/18/21 01/20/22 01/20/22 History omega-3 fatty acids 1,000 mg 1,000 mg PO QAM 04/18/21 01/20/22 01/20/22 08:30 History capsule (Fish Oil Concentrate) oxybutynin chloride 10 mg 10 mg PO QAM 04/18/21 01/20/22 01/20/22 08:30 History tablet,extended release 24 hr pantoprazole 40 mg tablet,delayed 40 mg PO QAM 04/18/21 01/20/22 01/20/22 08:30 History release cetirizine 10 mg capsule (All Day 10 mg PO DAILY 10/16/21 01/20/22 01/20/22 08:30 History Allergy (cetirizine)) Prevagen 1 cap PO QAM 01/20/22 01/20/22 01/20/22 History cyanocobalamin (vitamin B-12) 1,000 mcg SUBLINGUAL QAM 01/20/22 01/20/22 01/20/22 History 1,000 mcg sublingual tablet dexamethasone 0.5 mg/5 mL oral See Rx Instructions .ROUTE .COMPLEX 01/20/22 01/20/22 12/24/21 History elixir see pharmacy comment timolol maleate 0.5 % eye drops 1 drp OPHTHALMIC (EYE) BEDTIME 01/20/22 01/20/22 01/19/22 History Allergies Allergy/AdvReac Type Severity Reaction Status Date / Time celecoxib [From Celebrex] Allergy Unknown Verified 01/20/22 13:02 NSAIDS (Non-Steroidal Allergy Unknown Verified 01/20/22 13:02 Anti-Inflamma sulfamethoxazole Allergy Unknown Verified 01/20/22 13:02 [From Bactrim] trimethoprim [From Bactrim] Allergy Unknown Verified 01/20/22 13:02 PFSH Acute PFSH: Medical History Blind right eye Bradycardia Cataract COVID-19 vaccine administered Moderna x 2 doses GERD (gastroesophageal reflux disease) Gout History of GI bleed related to nsaid use HTN (hypertension) Hypothyroidism Osteoarthritis Osteoporosis Urinary incontinence Surgical History History of hysterectomy History of open reduction and internal fixation (ORIF) procedure Right femur History of total left knee replacement (~2015) History of total right knee replacement (~2013) Family History Mother Cancer leukemia Father CAD (coronary artery disease) Family/Other Diabetes Denies family history of Stroke Social History Smoking and tobacco status: never smoked Alcohol intake: never Substance/Drug Use: never Marital status: / Female Reproductive History: Date of last menstrual period: 08/23/21 Vitals/I&O/Wt Last Vital Signs Temp 99.5 F 01/20/22 16:35 Pulse 67 01/20/22 16:35 Resp 18 01/20/22 16:35 BP 141/73 01/20/22 16:35 Pulse Ox 94 01/20/22 16:35 Weight last 48 hrs Weight 160 lb Physical Exam Narrative: Constitutional: Awake and alert, cooperative HEENT: Normocephalic, atraumatic, extraocular movements are intact, pupils are reactive, oropharynx with dry mucous membranes but otherwise clear Neck: Supple Respiratory: Clear to auscultation bilaterally without any rales rhonchi or wheezes Cardiovascular: Regular rate and rhythm, no murmurs, gallops or rubs Abdomen: Soft, nontender, positive bowel sounds : Presently deferred Extremities: Right lower extremity externally rotated and shortened, still has her jeans on some unable to visualize the right hip for signs of bruising but has pain with any degree of movement in the right groin radiating through, trace edema pretibial bilaterally. Has bony hypertrophy of Heberden's and Les's nodes bilateral hands without any warmth or erythema acutely noted and no definitive tophi appreciated at the joints. Skin: Visible skin dry, minimal minor bruises or scratches although area of trauma not currently able to be visualized Neuro: Speech is clear, face symmetric, moves both hands, wiggles toes bilaterally with sensation intact at both toes to touch Psych: Normal affect Data : 01/20/22 11:50 01/20/22 11:50 A&P Assessment and plan (1) Closed intertrochanteric fracture of right femur: right hip nail possible screw removal Status: Acute Qualifiers: Encounter type: initial encounter Fracture alignment: displaced Qualified Code(s): S72.141A - Displaced intertrochanteric fracture of right femur, initial encounter for closed fracture Consult Attestations Medical Necessity Statement: femur fx Coding Level of Care Code 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
[2022-01-20] MEDS: sodium chloride 0.9% 1,000 ML 30 ML IV (17:05)
[2022-01-20] MEDS: labetalol 5 mg/mL SDV 20mL 100 MG (18:10)
--- NOTE | 2022-01-20 18:10 | P.OP_ITS ---
Operative Report Date of procedure: January 20, 2022 Pre-op diagnosis: Preop Diagnosis Right femur fracture IT fracture Post-op diagnosis: same Procedure done: IM nail for right IT fracture Surgeon: Good Albert Intelligence Support Officer: Wilfredo Wolfe Estimated blood loss (mL): 20 Procedure: Patient was brought to the operative suite placed in the supine position. All areas impingement well-padded patient was prepped and draped normal sterile fashion. Skin tear is made over the proximal tip the greater trochanter. Starting pin was inserted. Opening reamer was inserted. The lag screw wire was inserted up into the center center position of the femoral head. A lag screw was placed compressing the fracture. Locked in position with a locking bolt proximally and then a distal locking screw was placed. The nail was above her previous hardware. Once the nail was in position AP lateral fluoroscopy ensured that the hardware and fracture were in appropriate position wounds were irrigated closed with Vicryl and janie. Sterile dressings were applied patient was transferred to the PACU in stable condition.
--- NOTE | 2022-01-20 18:30 | ANE.PACU2 ---
Inpatient post-anesthesia follow up: Airway intact: Yes Vital signs: Temperature 97.5 F Pulse Rate 93 Respiratory Rate 18 Blood Pressure 141/67 Pulse Oximetry 95 Oxygen Delivery Me thod Nasal Cannula Oxygen Flow Rate 2 Fraction of Inspir ed Oxygen Hydration adequate: Yes Nausea and vomiting: No Pain level: 1 Mental status: Baseline
[2022-01-20] MEDS: sennosides 8.6 mg Tablet 17.2 MG PO (20:01)
[2022-01-20] MEDS: oxybutynin 5 mg Tablet PO (20:01)
[2022-01-20] MEDS: calcium carb-vit d 600mg/400unit 1 Tablet 1 EACH PO (20:01)
[2022-01-20] MEDS: docusate sodium 100 mg Capsule PO (20:01)
[2022-01-20] MEDS: HYDROcodone-acetaminophen 5-325 mg Tablet 1 TAB PO (20:01)
[2022-01-20] MEDS: D5-NS 0.45% + KCL 20 mEq 20 MEQ/1,000 ML BAG 75 MEQ IV (20:04)
[2022-01-20] MEDS: timolol 0.5% Op Soln 5 mL Btl 1 DROP EYE-RIGHT (21:36)
[2022-01-20] MEDS: levothyroxine 88 mcg Tablet PO (21:36)
[2022-01-21] VITALS (7 sets, daily range): BP systolic 99–129; BP diastolic 49–62; PULSE 56–76; RESP 13–18; TEMP 36.3–37.1; O2SAT 92–95
[2022-01-21] MEDS: HYDROcodone-acetaminophen 5-325 mg Tablet 1 TAB PO ×3 (05:38→20:55)
[2022-01-21] MEDS: enoxaparin 40 mg/0.4 mL Syringe SUBCUT (05:38)
[2022-01-21 06:17] LABS: Basophils % 0.2 %; Hematocrit 30.1 % (37.0-47.0); Hemoglobin 9.6 g/dL (11.5-15.3); Lymphocytes # 1.4 10^3/uL (0.8-4.8); Lymphocytes % 15.8 %; Mean Corpuscular HGB Conc 31.9 g/dL (30.0-36.0); Mean Corpuscular Hemoglobin 31.7 pg (28.0-34.0); Mean Corpuscular Volume 99.3 fl (81-99); Mean Platelet Volume 9.9 fL (7.4-10.4); Monocytes # 0.6 10^3/uL (0.2-0.9); Monocytes % 7.2 %; Neutrophils % 76.3 %; Nucleated Red Blood Cells % 0 %; Platelet Count 220 10^3/cmm (130-400); Red Blood Count 3.03 10^6/uL (4.1-5.3); Red Cell Distribution Width 14.6 % (12.1-15.1); White Blood Count 8.8 10^3/uL (4.0-10.0)
[2022-01-21 06:28] LABS: Estmated Average Glucose 131; Hemoglobin A1C 6.2 % (4.0-6.0)
[2022-01-21 06:40] LABS: Add Urine Microscopic? YES; Bilirubin Urine Neg (Negative); Blood Urine Neg (Negative); Glucose Urine UA Norm (Normal); Ketones Urine Negative (Negative); Leukocyte Esterase Urine 2+ (Negative); Nitrate Urine Negative (Negative); Protein Urine Neg (Negative); Urine Appearance Hazy (CLEAR); Urine Color Yellow (Yellow); Urobilinogen Urine Norm (Negative); pH Urine 5 (5-7)
[2022-01-21 06:42] LABS: Add Urine Culture? Yes; Bacteria Urine 1+ /hpf; Squamous Epithelial Cell Urine 0-4 /hpf (0-5); WBC Urine >100 /hpf (0-5)
[2022-01-21 06:52] LABS: Anion Gap 11.8 (5-19); Blood Urea Nitrogen 18 mg/dL (8-23); Carbon Dioxide 25 mmol/L (22-29); Chloride 104 mmol/L (98-107); Glucose 166 mg/dL (65-115); Osmolality Calculated 288 mOsm/kg (285-295); Potassium 4.8 mmol/L (3.5-5.1); Sodium 136 mmol/L (136-145)
[2022-01-21 07:25] LABS: Uric Acid 3.5 mg/dL (2.4-5.7)
--- NOTE | 2022-01-21 07:58 | PM.PN ---
Subjective Subjective: POD 1 Patient resting comfortably. Denies any shortness of breath or chest pain. Some mild right hip pain. Vitals/I&O/Wt Last Vital Signs Temp 97.9 F 01/21/22 06:00 Pulse 58 L 01/21/22 06:00 Resp 17 01/21/22 06:00 BP 103/62 01/21/22 06:00 Pulse Ox 92 01/21/22 06:00 01/20/22 01/21/22 01/21/22 22:59 06:59 14:59 Intake Total 180 / 180 110 / 290 1000 / 1000 Output Total 360 / 360 300 / 660 Balance -180 / -180 -190 / -370 1000 / 1000 Weight last 48 hrs Weight 160 lb Weight 160 lb Physical Exam Narrative: Patient is alert and orient x3 has good general appearance normal normal affect. Right hip incision is clean and dry. There is no signs of erythema or drainage no signs of infection. Good motor strength throughout both lower extremities. Fires in all motor groups. Skin is clear warm, feet are warm with good cap refill in all digits. Normal sensation to light touch. Calves are supple, no medial thigh tenderness, negative Homans' sign. No palpable edema peripherally. Urinary Catheter Management: Edmondson Latex: Cath Placed During This Visit: yes Reason for Continuing Indwelling Catheter: Required Immobilization for Trauma or Surgery or Anesthesia Urinary Catheter Date of Insertion: 01/20/22 Urinary Catheter Time of Insertion: 17:25 Data : 01/21/22 06:00 01/21/22 06:00 A&P Assessment and plan (1) Closed intertrochanteric fracture of right femur: Physical therapy to evaluate and treat weightbearing as tolerated right lower extremity. real estate services administrator to assist with placement. Continue incentive spirometry for pulmonary toilet. Discontinue Edmondson catheter. 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
[2022-01-21] MEDS: cholecalciferol (vitamin D3) 1,000 unit Tablet 2000 UNIT PO (08:33)
[2022-01-21] MEDS: calcium carb-vit d 600mg/400unit 1 Tablet 1 EACH PO ×2 (08:33→17:14)
[2022-01-21] MEDS: cetirizine 10 mg Tablet PO (08:33)
[2022-01-21] MEDS: allopurinol 300 mg Tablet PO (08:33)
[2022-01-21] MEDS: omega-3 fatty acids 1,000 mg Capsule 1000 MG PO (08:33)
[2022-01-21] MEDS: cyanocobalamin 1,000 mcg Tablet 1000 MCG PO (08:33)
[2022-01-21] MEDS: oxybutynin 5 mg Tablet PO ×2 (08:34→20:45)
[2022-01-21] MEDS: D5-NS 0.45% + KCL 20 mEq 20 MEQ/1,000 ML BAG 75 MEQ IV ×2 (08:34→22:19)
[2022-01-21] MEDS: pantoprazole DR 40 mg Tablet PO (08:34)
--- NOTE | 2022-01-21 08:49 | PC.NURSE ---
Remove robles catheter at 0845. Catheter intact with removal. 100 mls noted.
[2022-01-21 11:01] LABS: Glucose Point of Care 154 mg/dL (70-110)
--- NOTE | 2022-01-21 14:53 | PM.PN ---
Subjective Subjective: Doing OK. Tolerable hip pain. Denies CP, SOB, cough, constip Vitals/I&O/Wt Last Vital Signs Temp 98.3 F 01/21/22 08:00 Pulse 61 01/21/22 12:00 Resp 16 01/21/22 08:00 BP 99/62 01/21/22 12:00 Pulse Ox 95 01/21/22 12:00 01/20/22 01/21/22 01/21/22 22:59 06:59 14:59 Intake Total 180 / 180 110 / 290 1996.5 / Output Total 360 / 360 300 / 660 100 / 100 Balance -180 / -180 -190 / -370 1897.5 / 1897.5 Weight last 48 hrs Weight 72.575 kg Weight 72.575 kg Physical Exam Narrative: NAD CVS S1S2, RRR, Mur (-) Resp: CTA Abd soft, NT, BS+ Edema + Rt Pre tibial HEAD OF QUALITY A&Ox3 Rt Hip dressing dry Urinary Catheter Management: Edmondson Latex: Cath Placed During This Visit: yes Reason for Continuing Indwelling Catheter: Required Immobilization for Trauma or Surgery or Anesthesia Urinary Catheter Date of Insertion: 01/20/22 Urinary Catheter Time of Insertion: 17:25 Data : 01/21/22 06:00 01/21/22 06:00 A&P Assessment and plan (1) HTN (hypertension): stable Status: Chronic Qualifiers: Hypertension type: primary hypertension Qualified Code(s): I10 - Essential (primary) hypertension (2) Bradycardia: NSR now Status: Chronic (3) Closed intertrochanteric fracture of right femur: s/p ORIF Post Op Day 1 Status: Acute Qualifiers: Encounter type: initial encounter Fracture alignment: displaced Qualified Code(s): S72.141A - Displaced intertrochanteric fracture of right femur, initial encounter for closed fracture (4) Hypothyroidism: clin euthyroid Status: Chronic Qualifiers: Hypothyroidism type: acquired Qualified Code(s): E03.9 - Hypothyroidism, unspecified (5) Osteoporosis: Status: Chronic Qualifiers: Osteoporosis type: other Presence of current pathological fracture: with current pathological fracture Encounter type: initial encounter Qualified Code(s): M80.80XA - Other osteoporosis with current pathological fracture, unspecified site, initial encounter for fracture (6) Osteoarthritis: Status: Chronic Qualifiers: Osteoarthritis location: multiple joints Osteoarthritis type: primary Qualified Code(s): M15.9 - Polyosteoarthritis, unspecified Plan PT/OT as per orthop Pt now agreeable to go to SNF Continue pain management DVT Prophylaxis Attestations Medical Necessity Statement*: Anticipated stay greater than two midnights in this patient with fracture after a fall at home that will require surgical intervention.? She has had previous bilateral knee replacement and right femur fracture requiring surgical intervention now with right hip fracture that will also require repair.? Plans are as indicated. 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
--- NOTE | 2022-01-21 15:38 | PC.NURSE ---
Patient pain was at a tolerable range throughout the shift. Patient diet changed to regular. Vitals stable. Patient worked with PT. Edmondson catheter removed. Patient weaned off oxygen. Dressing are dry, clean, and intact. Will continue to monitor and give report to night nurse.
[2022-01-21 16:24] LABS: Basophils % 0.3 %; Eosinophils % 0.4 %; Hematocrit 31.9 % (37.0-47.0); Hemoglobin 10.1 g/dL (11.5-15.3); Lymphocytes # 2.5 10^3/uL (0.8-4.8); Lymphocytes % 22.4 %; Mean Corpuscular HGB Conc 31.7 g/dL (30.0-36.0); Mean Corpuscular Hemoglobin 31.9 pg (28.0-34.0); Mean Corpuscular Volume 100.6 fl (81-99); Mean Platelet Volume 10.2 fL (7.4-10.4); Monocytes # 1.1 10^3/uL (0.2-0.9); Monocytes % 9.5 %; Neutrophils # 7.42 10^3/uL (1.8-7.7); Nucleated Red Blood Cells % 0 %; Platelet Count 241 10^3/cmm (130-400); Red Blood Count 3.17 10^6/uL (4.1-5.3); Red Cell Distribution Width 14.4 % (12.1-15.1); White Blood Count 11.1 10^3/uL (4.0-10.0)
[2022-01-21] MEDS: timolol 0.5% Op Soln 5 mL Btl 1 DROP EYE-RIGHT (20:45)
[2022-01-21] MEDS: levothyroxine 88 mcg Tablet PO (20:45)
[2022-01-22] VITALS (8 sets, daily range): BP systolic 98–119; BP diastolic 52–70; PULSE 62–96; RESP 13–19; TEMP 36.5–37.2; O2SAT 90–96
[2022-01-22 05:55] LABS: Basophils # 0.1 10^3/uL (0.0-0.1); Basophils % 0.6 %; Eosinophils # 0.1 10^3/uL (0.0-0.8); Eosinophils % 1.3 %; Hemoglobin 9.2 g/dL (11.5-15.3); Lymphocytes # 1.9 10^3/uL (0.8-4.8); Lymphocytes % 21.7 %; Mean Corpuscular HGB Conc 31.7 g/dL (30.0-36.0); Mean Corpuscular Hemoglobin 32.4 pg (28.0-34.0); Mean Corpuscular Volume 102.1 fl (81-99); Mean Platelet Volume 10.8 fL (7.4-10.4); Monocytes # 0.9 10^3/uL (0.2-0.9); Monocytes % 10.5 %; Neutrophils # 5.85 10^3/uL (1.8-7.7); Neutrophils % 65.3 %; Nucleated Red Blood Cells % 0 %; Platelet Count 193 10^3/cmm (130-400); Red Blood Count 2.84 10^6/uL (4.1-5.3); Red Cell Distribution Width 14.6 % (12.1-15.1)
[2022-01-22] MEDS: enoxaparin 40 mg/0.4 mL Syringe SUBCUT (06:31)
--- NOTE | 2022-01-22 06:53 | PM.PN ---
Subjective Subjective: POD 2 Patient resting comfortably. Some mild right hip pain. She was up with physical therapy yesterday. Denies any chest pain, shortness of breath. Vitals/I&O/Wt Last Vital Signs Temp 98.5 F 01/22/22 04:00 Pulse 72 01/22/22 04:00 Resp 16 01/22/22 04:00 BP 119/64 01/22/22 04:00 Pulse Ox 90 01/22/22 04:00 01/21/22 01/21/22 01/22/22 14:59 22:59 06:59 Intake Total 1996.5 / 1060 / 3057.5 50 / 3107.5 Output Total 100 / 100 800 / 900 Balance 1897.5 / 1897.5 1060 / 2957.5 -750 / 2207.5 Weight last 48 hrs Weight 160 lb Weight 160 lb Physical Exam Narrative: Patient is alert and orient x3 has good general appearance normal normal affect.? Right hip incision is clean and dry.? There is no signs of erythema or drainage no signs of infection.? Good motor strength throughout both lower extremities.? Fires in all motor groups.? Skin is clear warm, feet are warm with good cap refill in all digits.? Normal sensation to light touch.? Calves are supple,? no medial thigh tenderness, negative Homans' sign.? No palpable edema peripherally. Urinary Catheter Management: Edmondson Latex: Cath Placed During This Visit: yes Reason for Continuing Indwelling Catheter: Required Immobilization for Trauma or Surgery or Anesthesia Urinary Catheter Date of Insertion: 01/20/22 Urinary Catheter Time of Insertion: 17:25 Data : 01/22/22 04:42 01/21/22 06:00 A&P Assessment and plan (1) Closed intertrochanteric fracture of right femur: Dressing change today. Continue physical therapy. Continue incentive spirometry for pulmonary toilet. We will see her back in the office in 2 weeks time for staple removal. From orthopedic standpoint okay to discharge when medically stable. Status: Acute Qualifiers: Encounter type: initial encounter Fracture alignment: displaced Qualified Code(s): S72.141A - Displaced intertrochanteric fracture of right femur, initial encounter for closed fracture Attestations Medical Necessity Statement*: defer to medical team Coding Level of Care Code Acute Sql Architect for [facility] Fwd Diagnoses Closed intertrochanteric fracture of right femur S72.141A Encounter type: initial encounter Fracture alignment: displaced
[2022-01-22] MEDS: omega-3 fatty acids 1,000 mg Capsule 1000 MG PO (08:24)
[2022-01-22] MEDS: oxybutynin 5 mg Tablet PO ×2 (08:24→21:15)
[2022-01-22] MEDS: cholecalciferol (vitamin D3) 1,000 unit Tablet 2000 UNIT PO (08:24)
[2022-01-22] MEDS: docusate sodium 100 mg Capsule PO ×2 (08:24→17:14)
[2022-01-22] MEDS: HYDROcodone-acetaminophen 5-325 mg Tablet 1 TAB PO ×4 (08:24→21:15)
[2022-01-22] MEDS: allopurinol 300 mg Tablet PO (08:24)
[2022-01-22] MEDS: cyanocobalamin 1,000 mcg Tablet 1000 MCG PO (08:24)
[2022-01-22] MEDS: pantoprazole DR 40 mg Tablet PO (08:24)
[2022-01-22] MEDS: calcium carb-vit d 600mg/400unit 1 Tablet 1 EACH PO ×2 (08:24→17:14)
[2022-01-22] MEDS: cetirizine 10 mg Tablet PO (08:25)
--- NOTE | 2022-01-22 17:12 | PM.PN ---
Subjective Subjective: Doing OK. Hip pain tolerable. Tolerating PT. Denies CP, SOB, cough. Has constip Vitals/I&O/Wt Last Vital Signs Temp 98.2 F 01/22/22 15:53 Pulse 69 01/22/22 15:53 Resp 13 01/22/22 15:53 BP 107/59 01/22/22 15:53 Pulse Ox 96 01/22/22 15:53 01/22/22 01/22/22 01/22/22 06:59 14:59 22:59 Intake Total 50 / 3107.5 360 / 360 Output Total 800 / 900 Balance -750 / 2207.5 360 / 360 Weight last 48 hrs Weight 72.575 kg Physical Exam Narrative: NAD CVS S1S2, RRR, Mur (-) Resp: CTA Abd soft, NT, BS+ Edema + Rt Pre tibial SUPPLY PLANNER A&Ox3 Rt Hip dressing Urinary Catheter Management: Edmondson Latex: Cath Placed During This Visit: yes Reason for Continuing Indwelling Catheter: Required Immobilization for Trauma or Surgery or Anesthesia Urinary Catheter Date of Insertion: 01/20/22 Urinary Catheter Time of Insertion: 17:25 Data : 01/22/22 04:42 01/21/22 06:00 Micro: Microbiology 01/20/22 05:52 Urine Culture - Preliminary Urine,Clean Catch A&P Assessment and plan (1) Closed intertrochanteric fracture of right femur: S/p ORIF/. Pain controlled Status: Acute Qualifiers: Encounter type: initial encounter Fracture alignment: displaced Qualified Code(s): S72.141A - Displaced intertrochanteric fracture of right femur, initial encounter for closed fracture (2) Bradycardia: NSR Status: Chronic (3) HTN (hypertension): stable Status: Chronic Qualifiers: Hypertension type: primary hypertension Qualified Code(s): I10 - Essential (primary) hypertension (4) Osteoporosis: stable Status: Chronic Qualifiers: Osteoporosis type: other Presence of current pathological fracture: with current pathological fracture Encounter type: initial encounter Qualified Code(s): M80.80XA - Other osteoporosis with current pathological fracture, unspecified site, initial encounter for fracture (5) Hypothyroidism: euthy Status: Chronic Qualifiers: Hypothyroidism type: acquired Qualified Code(s): E03.9 - Hypothyroidism, unspecified (6) Osteoarthritis: Status: Chronic Qualifiers: Osteoarthritis location: multiple joints Osteoarthritis type: primary Qualified Code(s): M15.9 - Polyosteoarthritis, unspecified (7) Fall: Status: Acute Qualifiers: Encounter type: initial encounter Qualified Code(s): W19.XXXA - Unspecified fall, initial encounter Plan Continue PT Transfer to SNF when bed available Attestations Medical Necessity Statement*: Pt w/ closed hip fracture s/p ORIF. 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 [facility] Fwd Diagnoses Closed intertrochanteric fracture of right femur S72.141A Encounter type: initial encounter Fracture alignment: displaced Bradycardia R00.1 HTN (hypertension) I10 Hypertension type: primary hypertension Osteoporosis M80.80XA Osteoporosis type: other Presence of current pathological fracture: with current pathological fracture Encounter type: initial encounter Hypothyroidism E03.9 Hypothyroidism type: acquired Osteoarthritis M15.9 Osteoarthritis location: multiple joints Osteoarthritis type: primary Fall W19.XXXA Encounter type: initial encounter
[2022-01-22] MEDS: D5-NS 0.45% + KCL 20 mEq 20 MEQ/1,000 ML BAG 75 MEQ IV (17:13)
[2022-01-22] MEDS: sennosides 8.6 mg Tablet 17.2 MG PO (21:15)
[2022-01-22] MEDS: levothyroxine 88 mcg Tablet PO (21:15)
[2022-01-22] MEDS: timolol 0.5% Op Soln 5 mL Btl 1 DROP EYE-RIGHT (21:15)
[2022-01-23 04:00] VITALS: BP 108/62; PULSE 72; RESP 18; O2SAT 90
[2022-01-23 06:00] VITALS: PULSE 84
[2022-01-23] MEDS: enoxaparin 40 mg/0.4 mL Syringe SUBCUT (06:30)
[2022-01-23] MEDS: D5-NS 0.45% + KCL 20 mEq 20 MEQ/1,000 ML BAG 75 MEQ IV (06:30)
[2022-01-23] MEDS: pantoprazole DR 40 mg Tablet PO (06:30)
[2022-01-23] MEDS: omega-3 fatty acids 1,000 mg Capsule 1000 MG PO (06:30)
[2022-01-23] MEDS: HYDROcodone-acetaminophen 5-325 mg Tablet 1 TAB PO ×2 (06:30→14:22)
[2022-01-23] MEDS: allopurinol 300 mg Tablet PO (06:30)
[2022-01-23 07:31] VITALS: BP 150/69; PULSE 87; RESP 12; TEMP 37.1; O2SAT 92
[2022-01-23] MEDS: calcium carb-vit d 600mg/400unit 1 Tablet 1 EACH PO (10:29)
[2022-01-23] MEDS: cholecalciferol (vitamin D3) 1,000 unit Tablet 2000 UNIT PO (10:29)
[2022-01-23] MEDS: cetirizine 10 mg Tablet PO (10:29)
[2022-01-23] MEDS: cyanocobalamin 1,000 mcg Tablet 1000 MCG PO (10:30)
[2022-01-23] MEDS: docusate sodium 100 mg Capsule PO (10:30)
[2022-01-23] MEDS: oxybutynin 5 mg Tablet PO (10:30)
--- NOTE | 2022-01-23 10:37 | P.DS_ITS ---
Discharge Providers Date of Admission: 01/20/22 12:52 Date of Discharge: January 23, 2022 Attending Provider at Admission: Sherley Marmolejo MD Attending Provider at Discharge: Jackie Felipe MD Primary Care Provider: Janeth Morton APN Diagnoses at Discharge Discharge Diagnosis (1) Closed intertrochanteric fracture of right femur: Status: Acute Qualifiers: Encounter type: initial encounter Fracture alignment: displaced Qualified Code(s): S72.141A - Displaced intertrochanteric fracture of right femur, initial encounter for closed fracture (2) Bradycardia: Status: Chronic (3) HTN (hypertension): Status: Chronic Qualifiers: Hypertension type: primary hypertension Qualified Code(s): I10 - Essential (primary) hypertension (4) Osteoporosis: Status: Chronic Qualifiers: Osteoporosis type: other Presence of current pathological fracture: with current pathological fracture Encounter type: initial encounter Qualified Code(s): M80.80XA - Other osteoporosis with current pathological fracture, unspecified site, initial encounter for fracture (5) Hypothyroidism: Status: Chronic Qualifiers: Hypothyroidism type: acquired Qualified Code(s): E03.9 - Hypothyroidism, unspecified (6) Osteoarthritis: Status: Chronic Qualifiers: Osteoarthritis location: multiple joints Osteoarthritis type: primary Qualified Code(s): M15.9 - Polyosteoarthritis, unspecified (7) Fall: Status: Acute Qualifiers: Encounter type: initial encounter Qualified Code(s): W19.XXXA - Unspecified fall, initial encounter Reason for Visit Reason for Visit: FALL, R HIP, R UPPER LEG PAIN Hospital Course Hospital Course Samir Gillespie is a 76 year old female who presented to the emergency room with right lower extremity and hip pain after a fall.? She was walking out to the barn to feed her cats when she missed stepped over some concrete and subsequently spun around and fell down landing on her right hip.? She had a pocket knife in her pocket.? She had also had a can of cat food in her pocket but it came out before she landed on it.? The knife was not open.? She was unable to get up.? She had a life alert and was able to get help with this.? EMS came out and stabilized her.? One of them actually also fed the cats.? Patient denies any preceding symptoms reporting that this is simply a mechanical fall.? She is normally fairly active taking care of things around her property including gardening, walking out to the barn to wash her close and attending to all of her own ADLs.? In the emergency room she was found to have comminuted intratrochanteric fracture of the right leg.? She has had previous right knee replacement as well as right femur fracture requiring surgical intervention.? No history of anesthesia difficulties, bleeding disorder, clotting disorder, renal dysfunction, coronary artery disease or pulmonary disease.? Daughter indicates that she did have some mental status changes postoperatively after her femur fracture repair which she was very confused and required a sitter for safety.? Patient's primary complaint is that of discomfort with any amount of movement. Patient received 2 doses of COVID vaccine, has not had COVID. Pt was admitted to [facility] unit. Orthopedic consult was obtained. Pt underwent ORIF for the repair of her Rt hip Fx. Physical Exam Narrative: NAD CVS S1S2, RRR, Mur (-) Resp: CTA Abd soft, NT, BS+ Edema + Rt Pre tibial THERAPEUTIC SPECIALIST A&Ox3 Rt Hip dressing dry Urinary Catheter Management: Edmondson Latex: Cath Placed During This Visit: yes Reason for Continuing Indwelling Catheter: Required Immobilization for Trauma or Surgery or Anesthesia Urinary Catheter Date of Insertion: 01/20/22 Urinary Catheter Time of Insertion: 17:25 Discharge Data Studies Completed and Pending Completed Studies During Hospitalization Category Date Time Status XR chest 1V portable [id number] Stat Exams 01/20/22 12:21 Completed XR hip RT 2-3V wo/w pel* [id number] Routine Exams 01/20/22 Completed XR hip RT 2-3V wo/w pel* [id number] Stat Exams 01/20/22 11:47 Completed Pending at discharge Category Date Time Status COVID OZH [Coronavirus PCR] Routine Lab 01/20/22 19:30 Uncollected Radiology Impressions Hip/Pelvis X-Ray 01/20/22 11:47 IMPRESSION: 1. Comminuted intertrochanteric fracture with slight coxa vera deformity. 2. Moderate degenerative narrowing of the joint compartment. Osteopenia. Chest X-Ray 01/20/22 12:21 IMPRESSION: 1. No acute cardiopulmonary finding. 2. Probable large hiatal hernia. Laboratory Results WBC 9.0 10^3/uL (4.0-10.0) 01/22/22 04:42 RBC 2.84 10^6/uL (4.1-5.3) L 01/22/22 04:42 Hgb 9.2 g/dL (11.5-15.3) L 01/22/22 04:42 Hct 29.0 % (37.0-47.0) L 01/22/22 04:42 MCV 102.1 fl (81-99) H 01/22/22 04:42 MCH 32.4 pg (28.0-34.0) 01/22/22 04:42 MCHC 31.7 g/dL (30.0-36.0) 01/22/22 04:42 RDW 14.6 % (12.1-15.1) 01/22/22 04:42 Plt Count 193 10^3/cmm (130-400) 01/22/22 04:42 MPV 10.8 fL (7.4-10.4) H 01/22/22 04:42 Neut % (Auto) 65.3 % 01/22/22 04:42 Lymph % (Auto) 21.7 % 01/22/22 04:42 [place] % (Auto) 10.5 % 01/22/22 04:42 Eos % (Auto) 1.3 % 01/22/22 04:42 Baso % (Auto) 0.6 % 01/22/22 04:42 Neut # (Auto) 5.85 10^3/uL (1.8-7.7) 01/22/22 04:42 Lymph # (Auto) 1.9 10^3/uL (0.8-4.8) 01/22/22 04:42 [place] # (Auto) 0.9 10^3/uL (0.2-0.9) 01/22/22 04:42 Eos # (Auto) 0.1 10^3/uL (0.0-0.8) 01/22/22 04:42 Baso # (Auto) 0.1 10^3/uL (0.0-0.1) 01/22/22 04:42 Nucleated RBC % (auto) 0 % 01/22/22 04:42 Nucleated RBCs # 0.0 /100WBC 01/22/22 04:42 Sodium 136 mmol/L (136-145) 01/21/22 06:00 Potassium 4.8 mmol/L (3.5-5.1) 01/21/22 06:00 Chloride 104 mmol/L (98-107) 01/21/22 06:00 Carbon Dioxide 25 mmol/L (22-29) 01/21/22 06:00 Anion Gap 11.8 (5-19) 01/21/22 06:00 BUN 18 mg/dL (8-23) 01/21/22 06:00 Creatinine 1.0 mg/dL (0.5-0.9) H 01/21/22 06:00 GFR Calculation Not Reportable 01/21/22 06:00 Glucose 166 mg/dL (65-115) H 01/21/22 06:00 POC Glucose 154 mg/dL (70-110) H 01/21/22 10:48 Estimat Average Glucose 131 01/21/22 06:00 Hemoglobin A1c 6.2 % (4.0-6.0) H 01/21/22 06:00 Calculated Osmolality 288 mOsm/kg (285-295) 01/21/22 06:00 Uric Acid 3.5 mg/dL (2.4-5.7) 01/21/22 06:00 Calcium 9.0 mg/dL (8.5-10.5) 01/21/22 06:00 Magnesium 2.0 mg/dL (1.7-2.3) 01/21/22 06:00 Total Bilirubin 0.3 mg/dL (0.15-1.2) 01/20/22 11:50 AST 18 U/L (0-32) 01/20/22 11:50 ALT 16 U/L (0-33) 01/20/22 11:50 Alkaline Phosphatase 80 IU/L (35-105) 01/20/22 11:50 Total Protein 7.3 g/dL (6.6-8.7) 01/20/22 11:50 Albumin 4.6 g/dL (3.5-5.2) 01/20/22 11:50 Globulin 2.7 g/dL (1.3-4.6) 01/20/22 11:50 Urine Color Yellow (Yellow) 01/20/22 05:52 Urine Appearance Hazy (CLEAR) A 01/20/22 05:52 Urine pH 5 (5-7) 01/20/22 05:52 Ur Specific [place] 1.020 (1.005-1.030) 01/20/22 05:52 Urine Protein Neg (Negative) 01/20/22 05:52 Urine Glucose (UA) Norm (Normal) 01/20/22 05:52 Urine Ketones Negative (Negative) 01/20/22 05:52 Urine Blood Neg (Negative) 01/20/22 05:52 Urine Nitrate Negative (Negative) 01/20/22 05:52 Urine Bilirubin Neg (Negative) 01/20/22 05:52 Urine Urobilinogen Norm mg/dL (Negative) 01/20/22 05:52 Ur Leukocyte Esterase 2+ (Negative) H 01/20/22 05:52 Urine RBC None /hpf (0-2) 01/20/22 05:52 Urine WBC >100 /hpf (0-5) H 01/20/22 05:52 Ur Squamous Epith Cells 0-4 /hpf (0-5) H 01/20/22 05:52 Amorphous Sediment Not Reportable 01/20/22 05:52 Urine Bacteria 1+ /hpf (NONE) H 01/20/22 05:52 Vitals Last Vital Signs Temp 98.7 F 01/23/22 07:31 Pulse 87 01/23/22 07:31 Resp 12 01/23/22 07:31 BP 150/69 01/23/22 07:31 Pulse Ox 92 01/23/22 07:31 Discharge Plan Discharge Patient Disposition: Home Health [facility] w Plan Readm Condition: Stable Prescriptions: New hydrocodone-acetaminophen 5-325 mg Tablet 1 tab PO Q4H PRN (Reason: Moderate To Severe Pain) 30 Days 0RF docusate sodium 100 mg Capsule 100 mg PO BID 60 Days Qty: 120 0RF bisacodyl 5 mg Tablet,Delayed Release (Dr/Ec) 10 mg PO DAILY PRN (Reason: Constipation (see protocol)) 30 Days 0RF calcium carbonate-vitamin D3 600 mg-10 mcg (400 unit) Tablet 1 ea PO BID 60 Days Qty: 120 0RF acetaminophen 325 mg Tablet 650 mg PO Q6H PRN (Reason: Mild/Mod Pain Or Temp >/= 101) 100 Days 0RF Continued pantoprazole 40 mg tablet,delayed release (DR/EC) 40 mg PO QAM 0RF levothyroxine 88 mcg tablet 88 mcg PO DAILY@22 0RF allopurinol 300 mg tablet 300 mg PO QAM 0RF oxybutynin chloride 10 mg tablet extended release 24hr 10 mg PO QAM 0RF multivitamin Tablet 1 tab PO QAM 0RF omega-3 fatty acids [Fish Oil Concentrate] 1,000 mg capsule 1,000 mg PO QAM 0RF All Day Allergy (cetirizine) 10 mg capsule 10 mg PO DAILY 0RF Vitamin B-12 1,000 mcg Tablet, Sublingual 1,000 mcg SUBLINGUAL QAM 0RF timolol maleate 0.5 % drops 1 drp ophthalmic (eye) BEDTIME 0RF Rx Instructions: each eye Prevagen 1 cap PO QAM 0RF Discontinued lisinopril 10 mg tablet 10 mg PO QAM 0RF Decadron 0.5 mg/5 mL Elixir See Rx Instructions .ROUTE .COMPLEX 0RF Rx Instructions: monthly as directed as needed Discharge Orders: Discharge Order (Routine); Ordered 01/23/22 Ordered By: Jackie Felipe Referrals: [facility] ([facility]) [Outside] Morton,DESTINEE Fowler [Primary Care Provider] - Discharge Diet: Usual diet Discharge Activity: As per PT/OT instructions Activity Restrictions/Additional Instructions: You are being discharged from the hospital today during which time you have been under the care of Dr Albert. You had a Right hip fracture. You were treated for this injury with IM nail. You may resume you normal diet (including any special diets as directed by your primary doctor) as well as your home medications. You should follow up with you primary doctor if you have any questions regarding medication you took prior to your stay in the hospital. You may take your pain medication as prescribed. After the first few days, take your pain medication as needed. Do not drive or drink alcohol while taking your pain medication. Your injury may increase your risk of developing a blood clot,or DVT, in your arm or leg. This could potentially dislodge and travel to your lungs and become a life threatening condition called apulmonary embolus,or PE. You have been prescribed eliquis to be taken to prevent this. Frequent movement of the legs will also help prevent this from occurring. If you develop any new or worsening cough, chestpain, bloody sputum or shortness of breath, call 911 or go to the EmergencyRoom. Always keep your surgical incision/dressing clean and dry. If you experience increasing pain at your incision site, redness, swelling, increasing discharge, foul odors, or fevers (greater than 100.4), night sweats or chills you should call the office at the above number. If you feel this is an emergency you should be evaluated in the Emergency Department of a nearby hospital. Orthopedic Patient Instructions Summary: Weight Bearing: WBAT Activity: as tolerated. Diet: regular. Wound Care: Keep dressing clean and dry. Change as needed Anticoagulation: Lovenox Pain Medication: Take only as needed. Ice, rest and elevation will be of great benefit. Please plan to follow-up wlth Dr Albert in 2 weeks. You will need to call the clinic [phone] to schedule. Do not hesitate to call the office with any questions or concerns. Discharge Attestations Time Spent in Discharge Care*: greater than 30 min Specific Discharge Activities: Other discharge activites (optional): Pt to f/U Orthopedic Office in 2 wks. Quality Metrics Clinical Quality Measures [ No reported AMI, CVA or VTE this stay] Coding Level of Care Code Acute [facility] note Diagnoses Closed intertrochanteric fracture of right femur S72.141A Encounter type: initial encounter Fracture alignment: displaced Bradycardia R00.1 HTN (hypertension) I10 Hypertension type: primary hypertension Osteoporosis M80.80XA Osteoporosis type: other Presence of current pathological fracture: with current pathological fracture Encounter type: initial encounter Hypothyroidism E03.9 Hypothyroidism type: acquired Osteoarthritis M15.9 Osteoarthritis location: multiple joints Osteoarthritis type: primary Fall W19.XXXA Encounter type: initial encounter
--- NOTE | 2022-01-23 10:38 | PC.SOCIAL ---
Pg 2 IMM Explained to pt PG 2 IMM. No questions voiced. Provided pt a copy. Initialed, dated, & timed a copy & placed in chart.
--- NOTE | 2022-01-23 14:07 | PC.NURSE ---
Discharge discussed with patient and daughter. Medications and follow up appointments gone over. Both parties verbalized understanding.
[2022-01-23 14:40] VITALS: BP 150/69; PULSE 87; RESP 12; TEMP 37.1; O2SAT 92
== END 2022-01-23 14:41 | disposition home health service (06) | DRG 482 ==
LOC: ER 12:39 → ER IP 16:03 → MEDSURG 16:35
PROVIDERS: Orthopaedic Surgery; Admitting Provider Hospitalist; Emergency Provider Family Medicine; PCP Nurse Practitioner Family; Visit Provider Internal Medicine
PROC: 0QS606Z Reposition Right Upper Femur with Intramedullary Internal Fixation Device, Open Approach (ICD-10-PCS; CPT 27245; principal; 2022-01-20 20:00)
DX: S72.141A Displaced intertrochanteric fracture of right femur, initial encounter for closed fracture (principal); W01.0XXA Fall on same level from slipping, tripping and stumbling without subsequent striking against object, initial encounter; Z96.653 Presence of artificial knee joint, bilateral; I10 Essential (primary) hypertension; K21.9 Gastro-esophageal reflux disease without esophagitis; E03.9 Hypothyroidism, unspecified; M1A.9XX0 Chronic gout, unspecified, without tophus (tophi); M15.9 Polyosteoarthritis, unspecified
CPT/HCPCS: 36415; 36416; 51702; 71045; 73502; 76000; 80048; 80053; 81001; 82962; 83036; 83735; 84550; 85025; 87086; 93005; 96361; 96372; 96374; 96375; 97110; 97116; 97161; 97165; 97530; 99285; C1713; J0330; J0690; J1100; J1200; J1650; J2270; J2405; J2704; J3010; J3490; J7030

== ENCOUNTER → 2022-02-04 14:03 | Outpatient (BNVA) | payer MEDICARE, OTHER, SELFPAY | PROVIDERS: PCP Nurse Practitioner Family; Visit Provider Orthopaedic Surgery | DX: W01.0XXD Fall on same level from slipping, tripping and stumbling without subsequent striking against object, subsequent encounter (principal); S72.141D Displaced intertrochanteric fracture of right femur, subsequent encounter for closed fracture with routine healing | CPT/HCPCS: 99024 ==

== ENCOUNTER → 2022-03-18 13:44 | Outpatient (BNVA) | payer MEDICARE, OTHER, SELFPAY | PROVIDERS: PCP Nurse Practitioner Family; Visit Provider Orthopaedic Surgery | DX: S72.141D Displaced intertrochanteric fracture of right femur, subsequent encounter for closed fracture with routine healing (principal); X58.XXXD Exposure to other specified factors, subsequent encounter | CPT/HCPCS: 73502; 73560; 73565; 99024 ==

== ENCOUNTER → 2022-05-06 14:06 | Outpatient (BNVA) | payer MEDICARE, OTHER, SELFPAY | PROVIDERS: PCP Nurse Practitioner Family; Visit Provider Physician Assistant | DX: S72.141D Displaced intertrochanteric fracture of right femur, subsequent encounter for closed fracture with routine healing (principal); X58.XXXD Exposure to other specified factors, subsequent encounter | CPT/HCPCS: 73502; 99024; 99213 ==

== ENCOUNTER → 2022-06-09 15:20 | Outpatient (BNVA) | payer MEDICARE, OTHER, SELFPAY | PROVIDERS: PCP Nurse Practitioner Family; Referring Provider Physician Assistant; Visit Provider Internal Medicine | DX: M81.0 Age-related osteoporosis without current pathological fracture (principal); I10 Essential (primary) hypertension; E03.9 Hypothyroidism, unspecified | CPT/HCPCS: 36415; 82306; 99204 ==

== ENCOUNTER 2022-07-21 13:48 | Outpatient (CLI) | payer MEDICARE, OTHER, SELFPAY ==
--- NOTE | 2022-07-21 14:30 | XR_ITS ---
WS: [id number] DEXA (DUAL ENERGY X-RAY ABSORPTIOMETRY) Bone mineral density was performed using a WaveMAX machine. HISTORY: Multiple fractures and osteoporosis COMPARISON: 03/14/2013 Lumbar spine BMD (L1-L4): 1.005 g/cm2 T score: -1.5 Z score: 0.1 Total hip BMD: Left: 0.604 (g/cm2). T score: -3.2 (no units) Z score: -1.5 (no units) Left forearm BMD: 0.702 g/cm2. T score: -2.0 Z score: 0.6 10 year probability of a major osteoporotic fracture is 52.7%. Compared to the prior study from 03/14/2013. Lumbar spine bone mineral density has increased by 9.5%. LEFT hip bone mineral density has decreased by 22.9%. XR/XR DEXA axial skeleton* [id number] IMPRESSION: OSTEOPOROSIS based upon the WHO classification for females. Significant decreas e in bone mineral density within the LEFT hip since the prior study. Increase i n bone mineral density in the lumbar spine is probably falsely elevated due to bony sclerosis.
[2022-07-21 14:45] LABS: Calcium 9.7 mg/dL (8.5-10.5)
[2022-07-21 14:51] LABS: Parathyroid Hormone 47.6 pg/mL (15-65)
== END 2022-07-21 13:49 | disposition home or self-care (01) ==
LOC: LAB 13:51
PROVIDERS: PCP Nurse Practitioner Family; Visit Provider Internal Medicine
DX: M81.0 Age-related osteoporosis without current pathological fracture (principal); Z87.81 Personal history of (healed) traumatic fracture
CPT/HCPCS: 36415; 77080; 82310; 83970

== ENCOUNTER → 2022-09-26 10:50 | Outpatient (BNVA) | payer MEDICARE, OTHER, SELFPAY | PROVIDERS: PCP Nurse Practitioner Family; Visit Provider Internal Medicine | DX: M80.80XA Other osteoporosis with current pathological fracture, unspecified site, initial encounter for fracture (principal); E07.9 Disorder of thyroid, unspecified; E03.9 Hypothyroidism, unspecified; Z79.890 Hormone replacement therapy | CPT/HCPCS: 99214 ==

== ENCOUNTER → 2022-11-21 10:21 | Outpatient (BNVA) | payer MEDICARE, OTHER, SELFPAY | PROVIDERS: PCP Nurse Practitioner Family; Visit Provider Internal Medicine Cardiovascular Disease | DX: R00.1 Bradycardia, unspecified (principal); R00.2 Palpitations; I10 Essential (primary) hypertension; K21.9 Gastro-esophageal reflux disease without esophagitis; E07.9 Disorder of thyroid, unspecified | CPT/HCPCS: 99214; Q3014 ==

== ENCOUNTER 2023-01-16 09:13 | Outpatient (CLI) | payer MEDICARE, OTHER, SELFPAY ==
--- NOTE | 2023-01-16 09:33 | MM_ITS ---
WS: [id number] BILATERAL SCREENING DIGITAL TOMOSYNTHESIS MAMMOGRAM WITH CAD HISTORY: SCREEN COMPARISON: 01/10/2022, 11/09/2020 Bilateral CC and MLO views with tomosynthesis and synthetic mammography submitted. Computer aided det ection analyzed. Breast composition: There are scattered areas of fibroglandular density. No suspicious masses, microc alcifications or architectural distortion. Benign bilateral round calcifications and arterial calcifi cations. MM/[place] [id number] IMPRESSION: BI-RADS: 2-Benign FOLLOW UP: 1 Year Follow-up
== END 2023-01-16 09:14 | disposition home or self-care (01) ==
PROVIDERS: PCP Nurse Practitioner Family; Visit Provider Nurse Practitioner Family
DX: Z12.31 Encounter for screening mammogram for malignant neoplasm of breast (principal)
CPT/HCPCS: 77063; 77067

== ENCOUNTER 2023-07-25 10:35 | Inpatient (IN) | payer MEDICARE, OTHER, SELFPAY ==
[2023-07-25] VITALS (7 sets, daily range): BP systolic 131–187; BP diastolic 67–87; PULSE 62–74; RESP 16–18; TEMP 36.4–37.1; O2SAT 90–95
--- NOTE | 2023-07-25 11:06 | W.ED.FALL ---
HPI - Fall General: Chief Complaint: Fall Stated Complaint: LEFT HIP PAIN S/P FALL Time Seen by Provider: 07/25/23 10:57 Source: patient Mode of arrival: EMS Limitations: no limitations History of Present Illness: This patient was brought to the emergency department by EMS from her home. He states that she heard her garage door alarm go off and got up to investigate and looked at the door and there was no individual or other activity outside and then she turned to go back into the other portion of the room and she fell to the floor on her left side. She states there was no syncope, passing out, palpitations, chest pain as a prodrome to the episode. She states that she felt pain in her left hip immediately. She did not hit her head or suffer loss of consciousness. Her daughter who lives down the road from her immediately was contacted by the patient and came to her house and found her laying on the floor comfortable without movement but otherwise in her normal state of mentation. Fall from: standing Fall witnessed: no Place fall occurred: home Loss of consciousness: None Prolonged down time: no Symptoms prior to fall: none Location of injury - extremities: Left: thigh Associated symptoms-after fall: Denies abdominal pain, headache(s) or neck pain Review of Systems Const: Denies: fever(s) or chills Eyes: Denies: change in vision Resp: Denies: dyspnea, productive cough or non-productive cough GI: Denies: abdominal pain, nausea, vomiting or diarrhea Musc: Denies: neck pain or back pain Skin/Breast: Denies: rash Neuro: Denies: headache(s) or seizure-like activity Cullen/Lymph: Reports: easy bruising; Denies: easy bleeding [facility] ED PFSH: Medical History Blind right eye Bradycardia Cataract COVID-19 vaccine administered Moderna x 2 doses GERD (gastroesophageal reflux disease) Gout History of GI bleed related to nsaid use HTN (hypertension) Hypothyroidism Osteoarthritis Osteoporosis Urinary incontinence Surgical History History of hysterectomy History of open reduction and internal fixation (ORIF) procedure Right femur History of total left knee replacement (~2015) History of total right knee replacement (~2013) Family History Mother Cancer leukemia Father CAD (coronary artery disease) Family/Other Diabetes Denies family history of Stroke Social History Smoking and tobacco status: never smoked Alcohol intake: never Substance/Drug Use: never Marital status: / Physical Exam Narrative: EXAM NARRATIVE: She is comfortable lying on examination cot. Answers questions appropriately in a goal-directed fashion. Const: COMMON NORMALS: no acute distress, average body habitus and patient oriented x3 GENERAL APPEARANCE: cooperative and comfortable HENMT: COMMON NORMALS: normocephalic, moist oral mucous membranes and oropharynx normal HEAD & SCALP: normal to inspection and normocephalic FACE & SINUS: normal facial exam Eye: COMMON NORMALS: Equal, round and reactive pupils present and EOMs intact bilaterally PUPIL: Yes Equal, round and reactive pupils present Neck/C-Spine: COMMON NORMALS: full ROM, no lymphadenopathy, supple, no JVD, Thyroid normal and No carotid bruits THYROID: Thyroid normal CERVICAL SPINE: Yes cervical ROM normal, No Cervical spine tenderness, No step off deformity and No Paracervical muscle tenderness Chest: COMMONS NORMALS: normal inspection of the chest Resp: COMMON NORMALS: normal respiratory effort, No use of accessory muscles and clear to auscultation bilaterally EFFORT & INSPECTION: Yes able to speak in complete sentences AUSCULTATION: clear to auscultation bilaterally Cardio: COMMON NORMALS: no JVD, regular rate, regular rhythm, No murmurs present (Cardio) and Peripheral pulses 2+ throughout RATE: regular rate RHYTHM: regular rhythm PERIPHERAL PULSES: Peripheral pulses 2+ throughout GI: COMMON NORMALS: Normal to inspection, nondistended, normoactive bowel sounds present and Soft to palpation PALPATION: Yes Soft to palpation : COMMON NORMALS: Yes no CVA tenderness BLADDER/KIDNEY EXAM: Yes no CVA tenderness Back/Pelvis: COMMON NORMALS: no CVA tenderness, thoracic and lumbar spine normal to inspection, no thoracic nor lumbar tenderness and thoraco-lumbar ROM normal Extremity: COMMON NORMALS: capillary refill normal NARRATIVE EXTREMITY EXAM: Left lower extremity is remarkable for shortening and internal rotation. No other findings on her extremity examination. GENERAL: Yes normal exam except as noted Neuro: COMMON NORMALS: patient oriented x3, moves all extremities (With exception of the left lower extremity which she declines to move becau), no focal motor deficits and no sensory deficits noted Psych: COMMON NORMALS: mental status grossly normal Skin: COMMON NORMALS: no rashes or lesions noted GENERAL SKIN EXAM: no rashes or lesions noted Course Reevaluation(s): Reevaluation #1: I informed patient and daughter of her injury and the need for operative repair. They voiced understanding. We will initiate screening laboratories. I also turned her oxygen off. She apparently was placed on oxygen via EMS. This may be due to her analgesic dosing. We will continue to observe her to ensure that there is no other underlying issues. Time: 12:02 Consultations: Consultation #1: Spoke with orthopedist Dr. Albert who agreed to consult for operative repair Time: 12:03 Consultation #2: Spoke with the attending hospitalist who agreed to admit. Time: 12:03 Vital Signs: Vital signs: Vital Signs Pulse Rate 62 07/25/23 10:40 Respiratory Rate 16 07/25/23 11:43 Blood Pressure 187/74 07/25/23 10:40 Pulse Oximetry 95 07/25/23 11:43 Oxygen Delivery Me thod Nasal Cannula 07/25/23 10:40 Oxygen Flow Rate 2 07/25/23 10:40 MDM - Fall Medical Decision Making 78-year-old lady who lives alone who had a ground-level fall this morning. She apparently got up to investigate an alarm and then turned to get return back to the room and fell on her left hip. She was unable to ambulate because of pain in her left hip. No syncope or other prodrome to her episode today. Examination reveals shortening and rotation of the left hip. No other injuries noted on clinical examination. Radiographs obtained revealed a surgical neck fracture of the left hip without any obvious pelvic fractures. Patient will be admitted to the hospitalist service for orthopedic consultation for operative repair. Lab Data I reviewed the patient's lab results. 07/25/23 12:22 07/25/23 12:22 Radiology Impressions Hip/Pelvis X-Ray 07/25/23 11:11 IMPRESSION: 1. Displaced subcapital fracture left femoral neck 2. Otherwise negative examination Imaging Data CXR: I personally reviewed and interpreted this imaging study as follows: My impression: Chest x-ray reveals likely is paraesophageal hiatal hernia and borderline cardiac size but otherwise no acute infiltrates or other acute disease. XR interpretation done by ED provider, pending radiology final review EKG Data EKG 1: I personally reviewed and interpreted this EKG as follows: Interpretation: Contemporaneous review of resting EKG reveals ventricular rate of 57 bpm. Normal MO interval, QRS duration, corrected QT interval. Normal axis. Consistent with borderline sinus bradycardia without any acute ST-T wave changes noted. 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
--- NOTE | 2023-07-25 11:11 | XRR_ITS ---
PROCEDURE INFORMATION: Exam: XR Left Hip Exam date and time: 07/25/2023 11:24 AM Age: 78 years old Clinical indication: Injury or trauma; Fall; Other: L hip pain TECHNIQUE: Imaging protocol: Radiologic exam of the left hip. Views: 2 or 3 views hip with pelvis when performed. COMPARISON: No relevant prior studies available. FINDINGS: Bones/joints: There is a mildly displaced subcapital fracture left femoral neck. The remainder of the visible bones are unremarkable. Soft tissues: Unremarkable. XR/XR hip LT 2-3V wo/w pel* [id number] IMPRESSION: 1. Displaced subcapital fracture left femoral neck 2. Otherwise negative examination
[2023-07-25] MEDS: fentaNYL 50 mcg/mL INJ 2mL IVP (11:43)
--- NOTE | 2023-07-25 12:04 | XRR_ITS ---
PROCEDURE INFORMATION: Exam: XR Chest Exam date and time: 07/25/2023 12:14 PM Age: 78 years old Clinical indication: Injury or trauma; Fall; Patient HX: Left hip FX; Pre op cxr; Cough; High risk proceure; Additional info: SOB; Left hip FX; Pre op cxr; Cough; High risk proceure TECHNIQUE: Imaging protocol: Radiologic exam of the chest. Views: 1 view. COMPARISON: CR XR chest 1V portable [id number] 01/20/2022 12:24 PM FINDINGS: Lungs: Unremarkable. No consolidation. Pleural spaces: Unremarkable. No pleural effusion. No pneumothorax. Heart/Mediastinum: There is a non reducible hiatal hernia stable since prior Bones/joints: Unremarkable. XR/XR chest 1V portable [id number] IMPRESSION: 1. No acute findings. 2. Stable hiatal hernia
--- NOTE | 2023-07-25 12:05 | ECG_ITS ---
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 Measurements Intervals [place] Rate: 57 P: 45 IA: 176 QRS: 17 QRSD: 105 T: 50 QT: 442 QTc: 432 Interpretive Statements SINUS BRADYCARDIA Compared to ECG 01/20/2022 12:40:46 T-wave abnormality no longer present Electronically Signed On 07-25-2023 13:56:31 CDT by Stef Bellamy M.D. [email or web address]
[2023-07-25 12:44] LABS: Basophils % 0.2 %; Eosinophils % 0.2 %; Hematocrit 38.2 % (36-47); Lymphocytes # 0.8 10^3/uL (0.8-4.8); Lymphocytes % 6.6 %; Mean Platelet Volume 9.3 fL (7.4-10.4); Monocytes # 0.7 10^3/uL (0.2-0.9); Monocytes % 5.2 %; Neutrophils # 11.01 10^3/uL (1.8-7.7); Neutrophils % 87.3 %; Nucleated Red Blood Cells % 0 %; Platelet Count 324 10^3/cmm (157-399); Red Blood Count 3.94 10^6/uL (3.85-5.65); Red Cell Distribution Width 14.8 % (12.1-15.1); White Blood Count 12.61 10^3/uL (3.29-11.43)
[2023-07-25 12:59] LABS: Alanine Aminotransferase 12 U/L (0-33); Albumin Level 3.9 g/dL (3.5-5.2); Alkaline Phosphatase 93 U/L (35-105); Anion Gap 14.2 (5-19); Aspartate Amino Transferase 16 U/L (0-32); Blood Urea Nitrogen 21 mg/dL (8-23); Calcium 9.6 mg/dL (8.5-10.5); Carbon Dioxide 24 mmol/L (22-29); Chloride 104 mmol/L (98-107); Globulin 2.8 g/dL (1.3-4.6); Glucose 180 mg/dL (65-115); Osmolality Calculated 294 mOsm/kg (285-295); Potassium 4.2 mmol/L (3.5-5.1); Sodium 138 mmol/L (136-145); Total Bilirubin 0.8 mg/dL (0.15-1.2); Total Protein 6.7 g/dL (6.6-8.7)
--- NOTE | 2023-07-25 13:13 | PM.HP ---
Providers/Chief Complaint Admitting Physician: Landry Craig Primary Care Provider: Janeth Morton APN Chief Complaint: LEFT HIP PAIN S/P FALL History of Present Illness Pleasant 78-year-old lady fell down at home after checking an alarm that had gone off her front porch, looking out the door she did not see anything, then when she went to turn around she fell down. IN ER found to have a displaced subcapital fracture of left femoral neck. She has had multiple prior falls including one about 10 days ago with some swelling and bruising in the right R dorsal hand which has been gradually improving. She uses a cane to walk around, but did not have it with her today. She has otherwise been at baseline state of health. She is noted to have some sinus bradycardia currently in the past of which she was unaware and states has been asymptomatic. Review of Systems Const: Denies: fever(s), chills, body aches or malaise Eyes: Denies: change in vision ENMT: Denies: throat pain Card: Denies: chest pain, edema, pre-syncope or dyspnea on exertion Resp: Denies: dyspnea, productive cough, change in phlegm color or hemoptysis GI: Denies: abdominal pain, nausea, vomiting, diarrhea, constipation, hematochezia or melena : Denies: flank pain, urinary frequency or hematuria Musc: Denies: back pain, joint swelling or joint redness Skin/Breast: Denies: rash or new lesions Neuro: Denies: headache(s), numbness in extremities, weakness in extremities, dizziness, confusion or seizure-like activity Medications/Allergies Home Medications Medication Instructions Recorded Confirmed Last Taken Type allopurinol 300 mg tablet 300 mg PO QAM 04/18/21 07/25/23 07/24/23 History multivitamin 1 tab PO QAM 04/18/21 07/25/23 07/24/23 History omega-3 fatty acids 1,000 mg 1,000 mg PO QAM 04/18/21 07/25/23 01/20/22 08:30 History capsule (Fish Oil Concentrate) oxybutynin chloride 10 mg 10 mg PO QAM 04/18/21 07/25/23 07/24/23 History tablet,extended release 24 hr cetirizine 10 mg capsule (All Day 10 mg PO DAILY 12/07/25/23 07/24/23 History Allergy (cetirizine)) cyanocobalamin (vitamin B-12) 1,000 mcg sublingual QAM 01/20/22 07/25/23 07/24/23 History 1,000 mcg sublingual tablet timolol maleate 0.5 % eye drops 1 drp ophthalmic (eye) BID 01/20/22 07/25/23 07/24/23 History levothyroxine 88 mcg tablet 88 mcg PO DAILY@09/30/22 07/25/23 07/24/23 History acetaminophen 325 mg tablet 325 mg PO QID PRN Pain 11/21/22 07/25/23 Unknown History pantoprazole 40 mg tablet,delayed 40 mg PO BID 11/21/22 07/25/23 07/24/23 History release lactobacillus combination no.4 3 3,000 mmu cells PO DAILY 07/25/23 07/25/23 07/24/23 History billion cell capsule (Probiotic) lisinopril 10 mg tablet 10 mg PO DAILY 07/25/23 07/25/23 07/24/23 History Allergies Allergy/AdvReac Type Severity Reaction Status Date / Time celecoxib [From Celebrex] Allergy Unknown Verified 07/25/23 10:49 NSAIDS (Non-Steroidal Allergy Unknown Verified 07/25/23 10:49 Anti-Inflamma sulfamethoxazole Allergy Unknown Verified 07/25/23 10:49 [From Bactrim] trimethoprim [From Bactrim] Allergy Unknown Verified 07/25/23 10:49 hydrocodone AdvReac ADR-Halluci Verified 07/25/23 10:49 nating PFSH Acute PFSH: Medical History Blind right eye Bradycardia Cataract COVID-19 vaccine administered Moderna x 2 doses GERD (gastroesophageal reflux disease) Gout History of GI bleed related to nsaid use HTN (hypertension) Hypothyroidism Osteoarthritis Osteoporosis Urinary incontinence Surgical History History of hysterectomy History of open reduction and internal fixation (ORIF) procedure Right femur History of total left knee replacement (~2015) History of total right knee replacement (~2013) Family History Mother Cancer leukemia Father CAD (coronary artery disease) Family/Other Diabetes Denies family history of Stroke Social History Smoking and tobacco status: never smoked Alcohol intake: never Substance/Drug Use: never Marital status: / Vitals/I&O/Wt Last Vital Signs Pulse 62 07/25/23 10:40 Resp 16 07/25/23 11:43 BP 187/74 07/25/23 10:40 Pulse Ox 95 07/25/23 11:43 O2 Del Method Nasal Cannula 07/25/23 10:40 O2 Flow Rate 2 07/25/23 10:40 Weight last 48 hrs Weight 71.214 kg Physical Exam Const: COMMON NORMALS: patient oriented x3 and alert GENERAL APPEARANCE: cooperative ORIENTATION/CONSCIOUSNESS: Yes awake HENMT: COMMON NORMALS: oropharynx normal Neck/C-Spine: COMMON NORMALS: no JVD Resp: COMMON NORMALS: normal respiratory effort and clear to auscultation bilaterally AUSCULTATION: clear to auscultation bilaterally Cardio: COMMON NORMALS: no JVD, regular rhythm, S1 normal heart sound present, S2 normal heart sound present and No murmurs present (Cardio) RHYTHM: regular rhythm HEART SOUNDS: S1 normal heart sound present and S2 normal heart sound present GI: COMMON NORMALS: Normal to inspection, nondistended, normoactive bowel sounds present, Soft to palpation and non-tender PALPATION: Yes Soft to palpation Extremity: COMMON NORMALS: no joint enlargement and no pedal edema OTHER: Everted LLE Neuro: COMMON NORMALS: patient oriented x3 and moves all extremities SENSORIUM/ORIENTATION: Yes alert Skin: COMMON NORMALS: no rashes or lesions noted GENERAL SKIN EXAM: no rashes or lesions noted Urinary Catheter Management: Edmondson: Cath Placed During This Visit: yes Urinary Catheter Date of Insertion: 07/25/23 Urinary Catheter Time of Insertion: 12:47 Data 07/25/23 12:22 07/25/23 12:22 A&P Assessment and plan (1) Closed fracture of left hip: After a fall while turning at home, did not have her cane with her. Has had prior falls. 1 about 10 days ago. Discussed with her and family regarding surgical risks. She states otherwise has been at baseline state of health. She would like to proceed with surgery. Noted to have some sinus bradycardia, heart rate in the low 60s, this appears not to be new and asymptomatic. EKG reviewed, noted WNL. Electrolytes reviewed, potassium 4.2. We will check magnesium. Check TSH. Monitor on telemetry, at risk of worsening bradycardia. Pending orthopedic assessment. We will give 1 dose VTE prophylaxis. N.p.o. after midnight. Tylenol, IV morphine as needed for pain. Reviewed CBC. Reviewed chest x-ray. Check UA. (2) Goals of care, counseling/discussion: In case of cardiopulmonary arrest she would want one-time attempted CPR. Plan HTN: Cardiac diet. Monitor blood pressure. We will hold morning dose of lisinopril to avoid hypotension. Hypothyroidism: Continue levothyroxine Sinus bradycardia: EKG with sinus bradycardia on my interpretation. Monitor on telemetry. Check TSH, magnesium. Hiatal hernia: Incidentally noted on chest x-ray. Continue PPI. Follow-up with PCP. Discussed with ER physician, ER documentation reviewed. Attestations Medical Necessity Statement*: Admission of over 2 midnights anticipated for assessment management of left hip fracture in a lady of advanced age, several comorbidities. and High MDM includes amount and/or complexity of data reviewed/ordered [ previous or external records, resulted lab(s)/test(s), independent test interpretation and other healthcare professional discussion] and described risk of complication, morbidity or mortality of management as documented Diagnoses Closed fracture of left hip S72.002A Goals of care, counseling/discussion Z71.89
[2023-07-25 14:33] LABS: Add Urine Culture? No; Add Urine Microscopic? YES; Bacteria Urine TRACE /hpf; Bilirubin Urine Neg (Negative); Blood Urine 2+ (Negative); Glucose Urine UA Norm (Normal); Ketones Urine Negative (Negative); Leukocyte Esterase Urine Negative (Negative); Mucus Urine 1+ /hpf; Nitrate Urine Negative (Negative); Protein Urine Neg (Negative); Specific Gravity, Urine 1.015 (1.005-1.030); Squamous Epithelial Cell Urine 0-4 /hpf (0-5); Urine Appearance Clear (CLEAR); Urine Color Yellow (Yellow); Urobilinogen Urine Norm (Negative); WBC Urine 0-4 /hpf (0-5); pH Urine 5 (5-7)
[2023-07-25 14:53] LABS: Magnesium 1.8 mg/dL (1.7-2.3); Thyroid Stimulating Hormone 1.12 uIU/mL (0.27-4.20)
[2023-07-25] MEDS: heparin 5,000 unit/mL INJ 1 mL 5000 UNIT SUBCUT (15:26)
[2023-07-25] MEDS: pantoprazole DR 40 mg Tablet PO (17:01)
[2023-07-25] MEDS: magnesium sulfate premix 1 GM/100 ML PIGGYBACK IV (20:47)
[2023-07-25] MEDS: levothyroxine 88 mcg Tablet PO (21:00)
[2023-07-25] MEDS: morphine 4 mg/mL SDV 1 mL 2 MG IVP (21:39)
[2023-07-26] VITALS (23 sets, daily range): BP systolic 61–167; BP diastolic 33–84; PULSE 56–81; RESP 10–117; TEMP 36.1–37.2; O2SAT 90–98
[2023-07-26 05:17] LABS: Basophils % 0.5 %; Eosinophils # 0.2 10^3/uL (0.0-0.8); Eosinophils % 2.3 %; Lymphocytes # 1.7 10^3/uL (0.8-4.8); Lymphocytes % 21.7 %; Mean Corpuscular HGB Conc 32.6 g/dL (30-55); Mean Corpuscular Hemoglobin 31.8 pg (27-33); Mean Corpuscular Volume 97.8 fl (85-98); Mean Platelet Volume 9.4 fL (7.4-10.4); Monocytes # 0.5 10^3/uL (0.2-0.9); Neutrophils # 5.28 10^3/uL (1.8-7.7); Neutrophils % 68.1 %; Nucleated Red Blood Cells % 0 %; Platelet Count 268 10^3/cmm (157-399); Red Blood Count 3.58 10^6/uL (3.85-5.65); Red Cell Distribution Width 15.2 % (12.1-15.1); White Blood Count 7.75 10^3/uL (3.29-11.43)
[2023-07-26 05:41] LABS: Anion Gap 13.1 (5-19); Blood Urea Nitrogen 15 mg/dL (8-23); Calcium 8.8 mg/dL (8.5-10.5); Carbon Dioxide 25 mmol/L (22-29); Chloride 103 mmol/L (98-107); Glucose 116 mg/dL (65-115); Osmolality Calculated 286 mOsm/kg (285-295); Potassium 4.1 mmol/L (3.5-5.1); Sodium 137 mmol/L (136-145)
[2023-07-26 06:04] LABS: Magnesium 2.1 mg/dL (1.7-2.3)
[2023-07-26] MEDS: morphine 4 mg/mL SDV 1 mL 2 MG IVP (06:21)
--- NOTE | 2023-07-26 07:12 | P.ANESASSM_ITS ---
Pre-Anesthetic Assessment Height/Weight: Height 1.7 m Weight 71.214 kg Temp Pulse Resp BP Pulse Ox O2 Del Method O2 Flow Rate 97.6 F 64 17 114/57 92 Room Air 2 07/26/23 04:00 07/26/23 06:00 07/26/23 06:21 07/26/23 04:00 07/26/23 04:00 07/25/23 13:21 07/25/23 10:40 Operation Date: 07/26/23 08:35 Proposed Procedures p Anterior Total Hip Arthroplasty(Left) - Good Albert, Familial anesthetic complications: none Was Beta Sherice taken within 24 hours: N/A Was Clonidine taken within 24 hours: N/A Last intake: Intake Last Liquid Date 07/25/23 Last Liquid Time 23:30 Last Solid Date 07/25/23 Last Solid Time 15:00 Social No alcohol and No tobacco Exam alert, oriented x 3, clear to auscultation bilaterally and regular rate & rhythm Airway Submandibular: within normal limits Cervical ROM: within normal limits Mallampati: Class I Dentition: partials CV/HEM Hypertension GI Gastroesophageal Reflux Disease Metabolic Thyroid Disease Anesthetic Plan ASA status: 2 Anesthesia: Regional (specify below) (SAB) Medications/Allergies Home Medications Medication Instructions Recorded Confirmed Last Taken Type allopurinol 300 mg tablet 300 mg PO QAM 04/18/21 07/25/23 07/24/23 History multivitamin 1 tab PO QAM 04/18/21 07/25/23 07/24/23 History omega-3 fatty acids 1,000 mg 1,000 mg PO QAM 04/18/21 07/25/23 01/20/22 08:30 History capsule (Fish Oil Concentrate) oxybutynin chloride 10 mg 10 mg PO QAM 04/18/21 07/25/23 07/24/23 History tablet,extended release 24 hr cetirizine 10 mg capsule (All Day 10 mg PO DAILY 10/16/21 07/25/23 07/24/23 History Allergy (cetirizine)) cyanocobalamin (vitamin B-12) 1,000 mcg sublingual QAM 01/20/22 07/25/23 07/24/23 History 1,000 mcg sublingual tablet timolol maleate 0.5 % eye drops 1 drp ophthalmic (eye) BID 01/20/22 07/25/2307/24/23 History levothyroxine 88 mcg tablet 88 mcg PO DAILY@22 09/30/22 07/25/23 07/24/23 History acetaminophen 325 mg tablet 325 mg PO QID PRN Pain 11/21/22 07/25/23 Unknown History pantoprazole 40 mg tablet,delayed 40 mg PO BID 11/21/22 07/25/23 07/24/23 History release lactobacillus combination no.4 3 3,000 mmu cells PO DAILY 07/25/23 07/25/23 07/24/23 History billion cell capsule (Probiotic) lisinopril 10 mg tablet 10 mg PO DAILY 07/25/23 07/25/23 07/24/23 History Allergies Allergy/AdvReac Type Severity Reaction Status Date / Time celecoxib [From Celebrex] Allergy Unknown Verified 07/25/23 10:49 NSAIDS (Non-Steroidal Allergy Unknown Verified 07/25/23 10:49 Anti-Inflamma sulfamethoxazole Allergy Unknown Verified 07/25/23 10:49 [From Bactrim] trimethoprim [From Bactrim] Allergy Unknown Verified 07/25/23 10:49 hydrocodone AdvReac ADR-Halluci Verified 07/25/23 10:49 nating Current Medications Generic Name Dose Route Start Last Admin Trade Name Freq PRN Reason Stop Dose Admin Allopurinol 300 mg 07/26/23 06:00 07/26/23 05:40 Allopurinol 300 Mg Tablet PO Not Given QAM ANTHONY Levothyroxine Sodium 88 mcg 07/25/23 22:00 07/25/23 21:00 Levothyroxine 88 Mcg Tablet PO 88 mcg DAILY@22 ANTHONY Administration Morphine Sulfate 2 mg 07/25/23 14:17 07/26/23 06:21 Morphine 4 Mg/Ml Sdv 1 Ml IVP 2 mg Q4H PRN Administration SEVERE PAIN Non-Formulary 1 each 07/25/23 19:45 07/25/23 20:51 Medication Timolol 0 EYE-BOTH Not Given .5% Op Soln 5 Ml Btl BID ANTHONY Pantoprazole Sodium 40 mg 07/25/23 18:00 07/25/23 17:[address] 40 Mg Tablet PO 40 mg BID ANTHONY Administration PFSH Anesthesia Medical History Blind right eye Bradycardia Cataract COVID-19 vaccine administered Moderna x 2 doses GERD (gastroesophageal reflux disease) Gout History of GI bleed related to nsaid use HTN (hypertension) Hypothyroidism Osteoarthritis Osteoporosis Urinary incontinence Surgical History History of hysterectomy History of open reduction and internal fixation (ORIF) procedure Right femur History of total left knee replacement (~2015) History of total right knee replacement (~2013) Family History Mother Cancer leukemia Father CAD (coronary artery disease) Family/Other Diabetes Denies family history of Stroke Social History Smoking and tobacco status: never smoked Alcohol intake: never Substance/Drug Use: never Marital status: / Data Anesthesia 07/26/23 05:00 07/26/23 05:00 Short CBC 07/25/23 07/26/23 Range/Units 12:22 05:00 WBC 12.61 H 7.75 (3.29-11.43) 10^3/uL Hgb 12.60 11.40 (11.27-16.99) g/dL Hct 38.2 35.0 L (36-47) % MCV 97.0 97.8 (85-98) fl Plt Count 324 268 (157-399) 10^3/cmm Neut % (Auto) 87.3 68.1 % Neut # (Auto) 11.01 H 5.28 (1.8-7.7) 10^3/uL BMP 07/25/23 07/26/23 12:22 05:00 Sodium 138 137 Potassium 4.2 4.1 Chloride 104 103 Carbon Dioxide 24 25 BUN 21 15 Creatinine 0.8 0.8 Glucose 180 H 116 H Calcium 9.6 8.8 Liver Function 07/25/23 Range/Units 12:22 Total Bilirubin 0.8 (0.15-1.2) mg/dL AST 16 (0-32) U/L ALT 12 (0-33) U/L Alkaline Phosphatase 93 (35-105) U/L Albumin 3.9 (3.5-5.2) g/dL Urine 07/25/23 Range/Units 14:10 Urine Color Yellow (Yellow) Urine Appearance Clear (CLEAR) Urine pH 5 (5-7) Ur Specific [place] 1.015 (1.005-1.030) Urine Protein Neg (Negative) Urine Glucose (UA) Norm (Normal) Urine Ketones Negative (Negative) Urine Nitrate Negative (Negative) Urine Bilirubin Neg (Negative) Ur Leukocyte Esterase Negative (Negative) Urine RBC 5-10 H (0-2) /hpf Urine WBC 0-4 H (0-5) /hpf Cardiac Studies: 2 Holter Monitor 01/04/21
--- NOTE | 2023-07-26 07:26 | W.PM.OPSUD ---
Surgery/Procedure H&P Update DATE OF PROCEDURE: July 26, 2023 DATE H&P PERFORMED: 07/26/23 H&P UPDATE INFORMATION: I have reviewed H&P completed within last 30 days, I have examined patient prior to procedure and No changes to prior documentation PLANNED PROCEDURE: Operation Date: 07/26/23 08:35 Proposed Procedures p Anterior Total Hip Arthroplasty(Left) - Good Albert DO
[2023-07-26] MEDS: sodium chloride 0.9% 1,000 ML 30 ML IV (07:27)
--- NOTE | 2023-07-26 07:28 | PM.CONSULT ---
Providers/Reason For Consult Consulting Physician/Specialty*: Orthopedics Reason for Consult*: Left hip pain Attending Physician: Landry Craig Primary Care Provider: Janeth Morton APN History of Present Illness History of Present Illness Samir Gillespie is a 78 year old female lives alone was looking out the window when she turned lost her balance fell sustaining injury to her left hip. She presented to the emergency room where x-rays confirmed a left femoral neck fracture this displaced. She was admitted for more definitive treatment orthopedics was consulted. She denies any loss of conscious in the fall denies any neck or back pain. All of her pain has been localized to the left hip since the fall. She did fall and break her right hip approximately 1 year ago. She reports the pain is 5 out of 10 on the pain scale to the left hip any movement makes it much worse. Rest gives her some temporary relief. Review of Systems Const: Denies: fever(s), chills, body aches or malaise Eyes: Denies: change in vision ENMT: Denies: throat pain Card: Denies: chest pain, edema, pre-syncope or dyspnea on exertion Resp: Denies: dyspnea, productive cough, change in phlegm color or hemoptysis GI: Denies: abdominal pain, nausea, vomiting, diarrhea, constipation, hematochezia or melena : Denies: flank pain, urinary frequency or hematuria Musc: Denies: back pain, joint swelling or joint redness Skin/Breast: Denies: rash or new lesions Neuro: Denies: headache(s), numbness in extremities, weakness in extremities, dizziness, confusion or seizure-like activity Medications/Allergies Home Medications Medication Instructions Recorded Confirmed Last Taken Type allopurinol 300 mg tablet 300 mg PO QAM 04/18/21 07/25/23 07/24/23 History multivitamin 1 tab PO QAM 04/18/21 07/25/23 07/24/23 History omega-3 fatty acids 1,000 mg 1,000 mg PO QAM 04/18/21 07/25/23 01/20/22 08:30 History capsule (Fish Oil Concentrate) oxybutynin chloride 10 mg 10 mg PO QAM 04/18/21 07/25/23 07/24/23 History tablet,extended release 24 hr cetirizine 10 mg capsule (All Day 10 mg PO DAILY 10/16/21 07/25/23 07/24/23 History Allergy (cetirizine)) cyanocobalamin (vitamin B-12) 1,000 mcg sublingual QAM 01/20/22 07/25/23 07/24/23 History 1,000 mcg sublingual tablet timolol maleate 0.5 % eye drops 1 drp ophthalmic (eye) BID 01/20/22 07/25/23 07/24/23 History levothyroxine 88 mcg tablet 88 mcg PO DAILY@22 09/30/22 07/25/23 07/24/23 History acetaminophen 325 mg tablet 325 mg PO QID PRN Pain 11/21/22 07/25/23 Unknown History pantoprazole 40 mg tablet,delayed 40 mg PO BID 11/21/22 07/25/23 07/24/23 History release lactobacillus combination no.4 3 3,000 mmu cells PO DAILY 07/25/23 07/25/23 07/24/23 History billion cell capsule (Probiotic) lisinopril 10 mg tablet 10 mg PO DAILY 07/25/23 07/25/23 07/24/23 History Allergies Allergy/AdvReac Type Severity Reaction Status Date / Time celecoxib [From Celebrex] Allergy Unknown Verified 07/25/23 10:49 NSAIDS (Non-Steroidal Allergy Unknown Verified 07/25/23 10:49 Anti-Inflamma sulfamethoxazole Allergy Unknown Verified 07/25/23 10:49 [From Bactrim] trimethoprim [From Bactrim] Allergy Unknown Verified 07/25/23 10:49 hydrocodone AdvReac ADR-Halluci Verified 07/25/23 10:49 nating Current Medications Generic Name Dose Route Start Last Admin Trade Name Freq PRN Reason Stop Dose Admin Allopurinol 300 mg 07/26/23 06:00 07/26/23 05:40 Allopurinol 300 Mg Tablet PO Not Given QAM ANTHONY Sodium Chloride 1,000 mls @ 30 mls/hr 07/26/23 07:30 07/26/23 07:27 Sodium Chloride 0.9% IV 07/27/23 07:29 30 mls/hr .Q24H ANTHONY Administration Levothyroxine Sodium 88 mcg 07/25/23 22:00 07/25/23 21:00 Levothyroxine 88 Mcg Tablet PO 88 mcg DAILY@22 ANTHONY Administration Morphine Sulfate 2 mg 07/25/23 14:17 07/26/23 06:21 Morphine 4 Mg/Ml Sdv 1 Ml IVP 2 mg Q4H PRN Administration SEVERE PAIN Non-Formulary 1 each 07/25/23 19:45 07/25/23 20:51 Medication Timolol 0 EYE-BOTH Not Given .5% Op Soln 5 Ml Btl BID ANTHONY Pantoprazole Sodium 40 mg 07/25/23 18:00 07/25/23 17:[address] 40 Mg Tablet PO 40 mg BID ANTHONY Administration PFSH Acute PFSH: Medical History Blind right eye Bradycardia Cataract COVID-19 vaccine administered Moderna x 2 doses GERD (gastroesophageal reflux disease) Gout History of GI bleed related to nsaid use HTN (hypertension) Hypothyroidism Osteoarthritis Osteoporosis Urinary incontinence Surgical History History of hysterectomy History of open reduction and internal fixation (ORIF) procedure Right femur History of total left knee replacement (~2015) History of total right knee replacement (~2013) Family History Mother Cancer leukemia Father CAD (coronary artery disease) Family/Other Diabetes Denies family history of Stroke Social History Smoking and tobacco status: never smoked Alcohol intake: never Substance/Drug Use: never Marital status: / Vitals/I&O/Wt Last Vital Signs Temp 97.6 F 07/26/23 04:00 Pulse 64 07/26/23 06:00 Resp 17 07/26/23 06:21 BP 114/57 07/26/23 04:00 Pulse Ox 92 07/26/23 04:00 O2 Del Method Room Air 07/25/23 13:21 O2 Flow Rate 2 07/25/23 10:40 07/25/23 07/26/23 07/26/23 22:59 06:59 14:59 Intake Total 580 / 580 Output Total 800 / 800 650 / 1450 Balance -220 / -220 -650 / -870 Weight last 48 hrs Weight 157 lb Physical Exam Narrative: She is alert and oriented x3 she has good general appearance normal mood and affect. Pain with palpation over the left hip she has a positive logroll on the left negative on the right. Well-healed incision on the right from previous hip surgery. She wiggles all digits are warm to the touch. Dorsalis pedis posterior tibial pulses are palpable. Dorsiflex and plantarflex both ankles. Skin is warm to touch calves are supple. No palpable pain in the lumbar thoracic or cervical region. Full range of motion both upper extremities at the cervical shoulders elbows and hands wrist. Radial pulses are palpable. HENMT: COMMON NORMALS: normocephalic and atraumatic HEAD & SCALP: normocephalic and atraumatic Resp: COMMON NORMALS: normal respiratory effort Cardio: COMMON NORMALS: regular rate and regular rhythm RATE: regular rate RHYTHM: regular rhythm GI: COMMON NORMALS: non-tender : COMMON NORMALS: Yes no CVA tenderness BLADDER/KIDNEY EXAM: Yes no CVA tenderness Back/Pelvis: COMMON NORMALS: no CVA tenderness Psych: COMMON NORMALS: cooperative Urinary Catheter Management: Edmondson: Cath Placed During This Visit: yes Reason for Continuing Indwelling Catheter: Perioperative Use in Selected Surgeries Urinary Catheter Date of Insertion: 07/25/23 Urinary Catheter Time of Insertion: 12:47 Data 07/26/23 05:00 07/26/23 05:00 A&P Assessment and plan (1) Displaced fracture of left femoral neck: Discussed with the patient and the family operative intervention involves a left hemiarthroplasty. Explained the risks and benefits of the procedure was good but meant to be infection nerve damage continued left hip pain need for further surgery reaction anesthesia the understand these risks wished to proceed. More than 50% of the time spent with the patient today involved coordination of care, counseling and discussion of conservative versus surgical treatment options. Total amount of time spent with the patient was 32 minutes. Coding Level of Care Code Acute Code for [facility] Fwd Diagnoses Displaced fracture of left femoral neck S72.002A Time Spent (min) 32
--- NOTE | 2023-07-26 07:32 | PC.NURSE ---
patient to surgery approximately 704
[2023-07-26] MEDS: HYDROmorphone 1 mg/mL INJ 1 mL 0.5 MG IVP (07:38)
[2023-07-26] MEDS: ceFAZolin 2,000 MG in sodium chloride 0.9% (plus) 50 ML 100 MG IV ×3 (07:48→23:15)
--- NOTE | 2023-07-26 08:50 | PM.OP ---
Operative Report Date of procedure: July 26, 2023 Pre-op diagnosis: Left femoral neck fracture of hip Post-op diagnosis: same Procedure done: Left hip hemiarthroplasty Surgeon: Good Albert DO Accounting Methods Analyst: Wilfredo Wolfe Accounting Methods Analyst: The salesperson surgical appliances, Wilfredo Wolfe, ALB[place] was needed for his expertise with fracture care. He was important and necessary throughout the procedure to complete in a safe and timely manner. He assisted with patient positioning prepping and draping tissue retraction suctioning of the operative field protection of the critical structures and tissue closure Estimated blood loss (mL): 10 Procedure: Left hip hemiarthroplasty Patient was brought to the operative suite after undergoing spinal anesthesia patient was placed in the lateral cubitus position. With the left side up. Skin incision made over the left hip. The IT band was split modified Kelly approach was used abductors and capsule were taken down anteriorly. The fracture was identified these was used to cut the remaining femoral neck. The femoral head was removed. Head was measured to be 48. Next tension was brought to the femur. The farebox repairer was used on the proximal part of the femur the canal finder was then used and then broaches broaches were used up to 6. Size 6 stem was inserted with a -4 neck length and a 48 head. Hip was reducible to be stable in all ranges of motion. The wounds were then irrigated. Wounds were closed in layered fashion repairing the capsule as well as the IT band and the skin the skin was closed with janie. Sterile dressing was applied and patient was transferred to the PACU in stable condition.
--- NOTE | 2023-07-26 09:26 | SUR.PHASEI ---
0915 Mj LINCOLN notified of low blood pressure. Albumin 5% 12.5 grams in 250 ml infused per Mj.
--- NOTE | 2023-07-26 09:58 | ANE.PACU2 ---
Inpatient post-anesthesia follow up: Airway intact: Yes Vital signs: Temperature 98.2 F Pulse Rate 60 Respiratory Rate 17 Blood Pressure 114/55 Pulse Oximetry 94 Oxygen Delivery Me thod Room Air Oxygen Flow Rate 2 Fraction of Inspir ed Oxygen Hydration adequate: Yes Nausea and vomiting: No Pain level: 1 Mental status: Baseline
--- NOTE | 2023-07-26 13:42 | P.PN_ITS ---
Subjective Subjective: She is awake, doing well shortly after completion of surgery in PACU, denies any pain or discomfort. No trouble breathing or chest pain. No needs or questions. Vitals/I&O/Wt Last Vital Signs Temp 98.1 F 07/26/23 12:00 Pulse 74 07/26/23 13:00 Resp 18 07/26/23 13:00 BP 137/66 07/26/23 13:00 Pulse Ox 93 07/26/23 13:00 O2 Del Method Nasal Cannula 07/26/23 13:00 O2 Flow Rate 1 07/26/23 13:00 07/25/23 07/26/23 07/26/23 22:59 06:59 14:59 Intake Total 580 / 580 1340 / 1340 Output Total 800 / 800 650 / 1450 200 / 200 Balance -220 / -220 -650 / -870 1140 / 1140 Weight last 48 hrs Weight 71.214 kg Physical Exam Const: COMMON NORMALS: patient oriented x3 and alert GENERAL APPEARANCE: cooperative ORIENTATION/CONSCIOUSNESS: Yes awake HENMT: COMMON NORMALS: oropharynx normal Neck/C-Spine: COMMON NORMALS: no JVD Resp: COMMON NORMALS: normal respiratory effort and clear to auscultation bilaterally AUSCULTATION: clear to auscultation bilaterally Cardio: COMMON NORMALS: no JVD, regular rhythm, S1 normal heart sound present, S2 normal heart sound present and No murmurs present (Cardio) RHYTHM: regular rhythm HEART SOUNDS: S1 normal heart sound present and S2 normal heart sound present GI: COMMON NORMALS: Normal to inspection, nondistended, normoactive bowel sounds present, Soft to palpation and non-tender PALPATION: Yes Soft to palpation Extremity: COMMON NORMALS: no joint enlargement and no pedal edema OTHER: L hip postop dressing, no bleeding or strikethrough. No thigh bruising or swelling. LLE appears perfused. Neuro: COMMON NORMALS: patient oriented x3 and moves all extremities SENSORIUM/ORIENTATION: Yes alert Skin: COMMON NORMALS: no rashes or lesions noted GENERAL SKIN EXAM: no rashes or lesions noted Urinary Catheter Management: Edmondson: Cath Placed During This Visit: yes Reason for Continuing Indwelling Catheter: Perioperative Use in Selected Surgeri es Urinary Catheter Date of Insertion: 07/25/23 Urinary Catheter Time of Insertion: 12:47 Data 07/26/23 05:00 07/26/23 05:00 A&P Assessment and plan (1) Closed fracture of left hip: Status post left hip arthroplasty this morning. Doing well so far. Reviewed orthopedic note. Continue postoperative care. Pain control as needed Tylenol, IV morphine. Antiemetics as needed. PT assessment. Case management unavailable today, consultation for tomorrow. After a fall while turning at home, did not have her cane with her. Has had prior falls. 1 about 10 days ago. Discussed with her and family regarding surgical risks. She states otherwise has been at baseline state of health. She would like to proceed with surgery. Noted to have some sinus bradycardia, heart rate in the low 60s, this appears not to be new and asymptomatic. EKG reviewed, noted WNL. Electrolytes reviewed, potassium 4.2. We will check magnesium. Check TSH. Monitor on telemetry, at risk of worsening bradycardia. Pending orthopedic assessment. We will give 1 dose VTE prophylaxis. N.p.o. after midnight. Tylenol, IV morphine as needed for pain. Reviewed CBC. Follow-up CBC for any anemia. Reviewed UA, unremarkable. (2) Goals of care, counseling/discussion: In case of cardiopulmonary arrest she would want one-time attempted CPR. Plan HTN: Changed to Cardiac diet. Monitor blood pressure. For now lisinopril has not been resumed yet. Hypothyroidism: Continue levothyroxine Sinus bradycardia: EKG with sinus bradycardia on my interpretation. Monitor on telemetry. Reviewed TSH, magnesium. Hiatal hernia: Incidentally noted on chest x-ray. Continue PPI. Follow-up with PCP. Attestations Medical Necessity Statement*: Continue admission for assessment management following left hip fracture and repair. Diagnoses Closed fracture of left hip S72.002A Goals of care, counseling/discussion Z71.89
[2023-07-26] MEDS: pantoprazole DR 40 mg Tablet PO (18:08)
[2023-07-26] MEDS: acetaminophen 325 mg Tablet 650 MG PO (20:53)
[2023-07-26] MEDS: levothyroxine 88 mcg Tablet PO (20:53)
[2023-07-26] MEDS: enoxaparin 40 mg/0.4 mL Syringe SUBCUT (20:53)
[2023-07-27] VITALS (9 sets, daily range): BP systolic 105–151; BP diastolic 56–70; PULSE 64–100; RESP 16–24; TEMP 36.4–37.1; O2SAT 91–98
[2023-07-27 05:01] LABS: Basophils % 0.4 %; Eosinophils # 0.2 10^3/uL (0.0-0.8); Eosinophils % 1.9 %; Hematocrit 32.2 % (36-47); Lymphocytes # 1.5 10^3/uL (0.8-4.8); Mean Corpuscular HGB Conc 32.6 g/dL (30-55); Mean Corpuscular Hemoglobin 32.5 pg (27-33); Mean Corpuscular Volume 99.7 fl (85-98); Mean Platelet Volume 9.4 fL (7.4-10.4); Monocytes # 0.9 10^3/uL (0.2-0.9); Monocytes % 9.5 %; Neutrophils # 6.83 10^3/uL (1.8-7.7); Neutrophils % 71.8 %; Nucleated Red Blood Cells % 0 %; Platelet Count 237 10^3/cmm (157-399); Red Blood Count 3.23 10^6/uL (3.85-5.65); Red Cell Distribution Width 15.2 % (12.1-15.1); White Blood Count 9.51 10^3/uL (3.29-11.43)
[2023-07-27 05:21] LABS: Anion Gap 13.3 (5-19); Blood Urea Nitrogen 10 mg/dL (8-23); Calcium 8.7 mg/dL (8.5-10.5); Carbon Dioxide 24 mmol/L (22-29); Chloride 104 mmol/L (98-107); Glucose 151 mg/dL (65-115); Osmolality Calculated 286 mOsm/kg (285-295); Potassium 4.3 mmol/L (3.5-5.1); Sodium 137 mmol/L (136-145)
[2023-07-27] MEDS: acetaminophen 325 mg Tablet 650 MG PO ×2 (06:10→21:02)
[2023-07-27] MEDS: allopurinol 300 mg Tablet PO (06:10)
--- NOTE | 2023-07-27 06:46 | PM.PN ---
Subjective Subjective: POD 1 Patient resting comfortably with family present. Slight left hip pain. Denies chest pain shortness of breath. Vitals/I&O/Wt Last Vital Signs Temp 97.9 F 07/27/23 04:00 Pulse 65 07/27/23 05:44 Resp 16 07/27/23 04:00 BP 119/62 07/27/23 04:00 Pulse Ox 91 07/27/23 04:00 O2 Del Method Nasal Cannula 07/26/23 16:00 O2 Flow Rate 1 07/26/23 16:00 07/26/23 07/26/23 07/27/23 14:59 22:59 06:59 Intake Total 1340 / 1340 170 / 1510 50 / 1560 Output Total 200 / 200 1250 / 1450 Balance 1140 / 1140 170 / 1310 -1200 / 110 Weight last 48 hrs Weight 157 lb Physical Exam Narrative: Patient is alert and orient x3 has good general appearance normal normal affect. Left hip incision is clean and dry. There is no signs of erythema or drainage no signs of infection. Good motor strength throughout both lower extremities. Fires in all motor groups. Skin is clear warm, feet are warm with good cap refill in all digits. Normal sensation to light touch. Calves are supple, no medial thigh tenderness, negative Homans' sign. No palpable edema peripherally. Urinary Catheter Management: Edmondson: Cath Placed During This Visit: yes, but has since been removed by the nurse Reason for Continuing Indwelling Catheter: Perioperative Use in Selected Surgeries Urinary Catheter Date of Insertion: 07/25/23 Urinary Catheter Time of Insertion: 12:47 Date Urinary Catheter Removed: 07/27/23 Time Urinary Catheter Discontinued: 06:15 Data 07/27/23 04:52 07/27/23 04:52 A&P Assessment and plan (1) Displaced fracture of left femoral neck: Physical therapy to work with mobilization and teach hip precautions. Continue incentive spirometer for pulmonary toilet. Defer to the hospitalist team for medical management. We will see her back in the office in 2 weeks time for staple removal. Attestations Medical Necessity Statement*: Defer to medical team Coding Level of Care Code Acute Code for Chg Fwd Diagnoses Displaced fracture of left femoral neck S72.002A
[2023-07-27] MEDS: pantoprazole DR 40 mg Tablet PO ×2 (08:05→18:16)
[2023-07-27] MEDS: ceFAZolin 2,000 MG in sodium chloride 0.9% (plus) 50 ML 100 MG IV (08:05)
--- NOTE | 2023-07-27 12:28 | P.PN_ITS ---
Subjective Subjective: Hospital course, labs appreciated. Today morning seen sitting up in chair. Walked on 30 feet with physical therapy. Family member at bedside. Patient denies any nausea, vomiting, headache. States pain is controlled for now her complaining of discomfort during ambulation. Vitals/I&O/Wt Last Vital Signs Temp 97.5 F L 07/27/23 11:38 Pulse 66 07/27/23 11:38 Resp 17 07/27/23 11:38 BP 128/56 07/27/23 11:38 Pulse Ox 98 07/27/23 11:38 O2 Del Method Room Air 07/27/23 11:38 O2 Flow Rate 1 07/26/23 16:00 07/26/23 07/27/23 07/27/23 22:59 06:59 14:59 Intake Total 170 / 1510 50 / 1560 410 / 410 Output Total 1250 / 1450 Balance 170 / 1310 -1200 / 110 410 / 410 Physical Exam Const: COMMON NORMALS: patient oriented x3 and alert GENERAL APPEARANCE: cooperative ORIENTATION/CONSCIOUSNESS: Yes awake HENMT: COMMON NORMALS: oropharynx normal Neck/C-Spine: COMMON NORMALS: no JVD Resp: COMMON NORMALS: normal respiratory effort and clear to auscultation bilaterally AUSCULTATION: clear to auscultation bilaterally Cardio: COMMON NORMALS: no JVD, regular rhythm, S1 normal heart sound present, S2 normal heart sound present and No murmurs present (Cardio) RHYTHM: regular rhythm HEART SOUNDS: S1 normal heart sound present and S2 normal heart sound present GI: COMMON NORMALS: Normal to inspection, nondistended, normoactive bowel so unds present, Soft to palpation and non-tender PALPATION: Yes Soft to pal pation Extremity: COMMON NORMALS: no joint enlargement and no pedal edema OTHER: L hip postop dressing, no bleeding or strikethrough. No thigh bruising or swelling. LLE appears perfused. Neuro: COMMON NORMALS: patient oriented x3 and moves all extremities SENSORIUM/ORIENTATION: Yes alert Skin: COMMON NORMALS: no rashes or lesions noted GENERAL SKIN EXAM: no rashes or lesions noted Urinary Catheter Management: Edmondson: Cath Placed During This Visit: yes, but has since been removed by the nurse Reason for Continuing Indwelling Catheter: Perioperative Use in Selected Surgeries Urinary Catheter Date of Insertion: 09/30/23 Urinary Catheter Time of Insertion: 12:47 Date Urinary Catheter Removed: 07/27/23 Time Urinary Catheter Discontinued: 06:15 Data 07/27/23 04:52 07/27/23 04:52 A&P Assessment and plan (1) Closed fracture of left hip: Postoperative day 1. Continue with PT, incentive spirometry. Lovenox for DVT prophylaxis. Pain regimen. Monitor hemoglobin. (2) Goals of care, counseling/discussion: In case of cardiopulmonary arrest she would want one-time attempted CPR. Full code for now. Plan HTN: Goal blood pressure less than 140/90 mmHg. Monitor blood pressures. Follow blood pressures at goal. Hypothyroidism: Appreciate TSH. Continue home dose of levothyroxine Hiatal hernia: Incidentally noted on chest x-ray. Continue PPI. Follow-up with PCP. Full code Cardiac diet Lovenox for DVT prophylaxis Protonix for PUD prophylaxis Discharge plan: Discussed in detail with patient and family were at bedside. They do not want SNF and would want to try home health. As per patient she has had multiple physical therapies for multiple joint surgeries in the past. Agreeable for home health for PT. Case management alerted. Plan to discharge in next 24 hours to home with caregiver and home health for PT. Attestations Medical Necessity Statement*: Requires further hospitalization for postoperative care for ORIF by safe discharge planning is sought. Diagnoses Closed fracture of left hip S72.002A Goals of care, counseling/discussion Z71.89
[2023-07-27 15:48] LABS: Iron 17 ug/dL (37-145); Percent Saturation 11.9 % (20-50); Total Iron Binding Capacity 142 mcg/dl; Unsaturated Iron Binding 125 ug/dL (112-347); Vitamin B12 1967 pg/mL (232-1245)
[2023-07-27] MEDS: levothyroxine 88 mcg Tablet PO (21:02)
[2023-07-27] MEDS: enoxaparin 40 mg/0.4 mL Syringe SUBCUT (21:04)
[2023-07-28] VITALS: BP 114/65; PULSE 62; RESP 18; TEMP 36.8; O2SAT 93
[2023-07-28 04:00] VITALS: BP 117/60; PULSE 59; RESP 18; TEMP 36.8; O2SAT 92
[2023-07-28 05:23] LABS: Basophils % 0.3 %; Eosinophils # 0.2 10^3/uL (0.0-0.8); Eosinophils % 1.9 %; Hematocrit 29.3 % (36-47); Lymphocytes # 1.6 10^3/uL (0.8-4.8); Lymphocytes % 16.6 %; Mean Corpuscular HGB Conc 33.4 g/dL (30-55); Mean Corpuscular Hemoglobin 32.5 pg (27-33); Mean Platelet Volume 9.9 fL (7.4-10.4); Monocytes % 10.1 %; Neutrophils # 6.67 10^3/uL (1.8-7.7); Neutrophils % 70.6 %; Nucleated Red Blood Cells % 0 %; Platelet Count 236 10^3/cmm (157-399); Red Blood Count 3.02 10^6/uL (3.85-5.65); Red Cell Distribution Width 15.1 % (12.1-15.1); White Blood Count 9.46 10^3/uL (3.29-11.43)
[2023-07-28] MEDS: allopurinol 300 mg Tablet PO (05:31)
[2023-07-28 05:35] LABS: Estmated Average Glucose 128; Hemoglobin A1C 6.1 % (4.0-6.0)
[2023-07-28 05:44] LABS: Alanine Aminotransferase 6 U/L (0-33); Albumin Level 2.9 g/dL (3.5-5.2); Alkaline Phosphatase 74 U/L (35-105); Aspartate Amino Transferase 13 U/L (0-32); Blood Urea Nitrogen 10 mg/dL (8-23); Calcium 8.8 mg/dL (8.5-10.5); Carbon Dioxide 23 mmol/L (22-29); Chloride 102 mmol/L (98-107); Chol HDL Ratio 4.53 mg/dL (0.0-4.40); Cholesterol 172 mg/dL (0-200); Globulin 2.8 g/dL (1.3-4.6); Glucose 129 mg/dL (65-115); HDL Cholesterol 38 mg/dL (60-100); LDL Cholesterol Calculated 114 mg/dL (50-129); Osmolality Calculated 281 mOsm/kg (285-295); Sodium 135 mmol/L (136-145); Total Bilirubin 0.6 mg/dL (0.15-1.2); Total Protein 5.7 g/dL (6.6-8.7); Triglycerides 98 mg/dL (0-150); VLDL Cholestrol Calculation 20 mg/dL (0-30)
[2023-07-28 06:00] VITALS: PULSE 67
[2023-07-28 06:27] LABS: Folate Level 17.1 ng/mL (4.8-37.3)
[2023-07-28 08:00] VITALS: BP 106/57; PULSE 65; RESP 17; TEMP 36.9; O2SAT 95
[2023-07-28] MEDS: pantoprazole DR 40 mg Tablet PO (10:09)
--- NOTE | 2023-07-28 10:49 | PM.DCS ---
Discharge Providers Date of Admission: 07/25/23 12:06 Date of Discharge: July 28, 2023 Attending Provider at Admission: Landry Craig Attending Provider at Discharge: Steven Alonso MD Primary Care Provider: Janeth Morton APN Diagnoses at Discharge Discharge Diagnosis (1) Closed fracture of left hip: Status: Acute (2) Goals of care, counseling/discussion: Status: Acute Reason for Visit Reason for Visit: LEFT HIP PAIN S/P FALL Brief History: History as per HPI: Pleasant 78-year-old lady fell down at home after checking an alarm that had gone off her front porch, looking out the door she did not see anything, then when she went to turn around she fell down. IN ER found to have a displaced subcapital fracture of left femoral neck.? She has had multiple prior falls including one about 10 days ago with some swelling and bruising in the right R dorsal hand which has been gradually improving.? She uses a cane to walk around, but did not have it with her today.? She has otherwise been at baseline state of health.? She is noted to have some sinus bradycardia currently in the past of which she was unaware and states has been asymptomatic. Hospital Course Hospital Course Patient was admitted to the hospital further evaluation and management of closed fracture of the left hip. Orthopedics was consulted and she underwent ORIF on 07/26. Patient worked well with physical therapy. Her hospitalization was unremarkable. Safe discharge plan were discussed in detail with patient and patient's family member at bedside. They were both agreeable for safe discharge to home with home health and physical therapy. She has been discharged imminently stable condition with advised to hold off on lisinopril for next 10 days. She is to check her blood pressure daily at home maintain a blood pressure diary and follow-up with a primary care provider within next 10 days for further adjustment of antihypertensives as needed. Physical Exam Const: COMMON NORMALS: patient oriented x3 and alert GENERAL APPEARANCE: cooperative ORIENTATION/CONSCIOUSNESS: Yes awake HENMT: COMMON NORMALS: oropharynx normal Neck/C-Spine: COMMON NORMALS: no JVD Resp: COMMON NORMALS: normal respiratory effort and clear to auscultation bilaterally AUSCULTATION: clear to auscultation bilaterally Cardio: COMMON NORMALS: no JVD, regular rhythm, S1 normal heart sound present, S2 normal heart sound present and No murmurs present (Cardio) RHYTHM: regular rhythm HEART SOUNDS: S1 normal heart sound present and S2 normal heart sound present GI: COMMON NORMALS: Normal to inspection, nondistended, normoactive bowel sounds present, Soft to palpation and non-tender PALPATION: Yes Soft to palpation Extremity: COMMON NORMALS: no joint enlargement and no pedal edema OTHER: L hip postop dressing, no bleeding or strikethrough. No thigh bruising or swelling. LLE appears perfused. Neuro: COMMON NORMALS: patient oriented x3 and moves all extremities SENSORIUM/ORIENTATION: Yes alert Skin: COMMON NORMALS: no rashes or lesions noted GENERAL SKIN EXAM: no rashes or lesions noted Urinary Catheter Management: Edmondson: Cath Placed During This Visit: yes, but has since been removed by the nurse Reason for Continuing Indwelling Catheter: Perioperative Use in Selected Surgeries Urinary Catheter Date of Insertion: 07/25/23 Urinary Catheter Time of Insertion: 12:47 Date Urinary Catheter Removed: 07/27/23 Time Urinary Catheter Discontinued: 06:15 Discharge Data Studies Completed and Pending Completed Studies During Hospitalization Category Date Time Status XR chest 1V portable [id number] Stat Exams 07/25/23 12:04 Completed XR hip LT 2-3V wo/w pel* [id number] Stat Exams 07/25/23 11:11 Completed Radiology Impressions Hip/Pelvis X-Ray 07/25/23 11:11 IMPRESSION: 1. Displaced subcapital fracture left femoral neck 2. Otherwise negative examination Chest X-Ray 07/25/23 12:04 IMPRESSION: 1. No acute findings. 2. Stable hiatal hernia Laboratory Results WBC 9.46 10^3/uL (3.29-11.43) 07/28/23 04:59 RBC 3.02 10^6/uL (3.85-5.65) L 07/28/23 04:59 Hgb 9.80 g/dL (11.27-16.99) L 07/28/23 04:59 Hct 29.3 % (36-47) L 07/28/23 04:59 MCV 97.0 fl (85-98) 07/28/23 04:59 MCH 32.5 pg (27-33) 07/28/23 04:59 MCHC 33.4 g/dL (30-55) 07/28/23 04:59 RDW 15.1 % (12.1-15.1) 07/28/23 04:59 Plt Count 236 10^3/cmm (157-399) 07/28/23 04:59 MPV 9.9 fL (7.4-10.4) 07/28/23 04:59 Neut % (Auto) 70.6 % 07/28/23 04:59 Lymph % (Auto) 16.6 % 07/28/23 04:59 [place] % (Auto) 10.1 % 07/28/23 04:59 Eos % (Auto) 1.9 % 07/28/23 04:59 Baso % (Auto) 0.3 % 07/28/23 04:59 Neut # (Auto) 6.67 10^3/uL (1.8-7.7) 07/28/23 04:59 Lymph # (Auto) 1.6 10^3/uL (0.8-4.8) 07/28/23 04:59 [place] # (Auto) 1.0 10^3/uL (0.2-0.9) H 07/28/23 04:59 Eos # (Auto) 0.2 10^3/uL (0.0-0.8) 07/28/23 04:59 Baso # (Auto) 0.0 10^3/uL (0.0-0.1) 07/28/23 04:59 Nucleated RBC % (auto) 0 % 07/28/23 04:59 Nucleated RBCs # 0.0 /100WBC 07/28/23 04:59 Sodium 135 mmol/L (136-145) L 07/28/23 04:59 Potassium 4.0 mmol/L (3.5-5.1) 07/28/23 04:59 Chloride 102 mmol/L (98-107) 07/28/23 04:59 Carbon Dioxide 23 mmol/L (22-29) 07/28/23 04:59 Anion Gap 14.0 (5-19) 07/28/23 04:59 BUN 10 mg/dL (8-23) 07/28/23 04:59 Creatinine 0.7 mg/dL (0.5-0.9) 07/28/23 04:59 GFR Calculation Not Reportable 07/28/23 04:59 Glucose 129 mg/dL (65-115) H 07/28/23 04:59 Estimat Average Glucose 128 07/28/23 04:59 Hemoglobin A1c 6.1 % (4.0-6.0) H 07/28/23 04:59 Calculated Osmolality 281 mOsm/kg (285-295) L 07/28/23 04:59 Calcium 8.8 mg/dL (8.5-10.5) 07/28/23 04:59 Magnesium 2.1 mg/dL (1.7-2.3) 07/26/23 05:00 Iron 17 ug/dL (37-145) L 07/27/23 04:52 TIBC 142 mcg/dl 07/27/23 04:52 % Saturation 11.9 % (20-50) L 07/27/23 04:52 Unsat Iron Binding 125 ug/dL (112-347) 07/27/23 04:52 Total Bilirubin 0.6 mg/dL (0.15-1.2) 07/28/23 04:59 AST 13 U/L (0-32) 07/28/23 04:59 ALT 6 U/L (0-33) 07/28/23 04:59 Alkaline Phosphatase 74 U/L (35-105) 07/28/23 04:59 Total Protein 5.7 g/dL (6.6-8.7) L 07/28/23 04:59 Albumin 2.9 g/dL (3.5-5.2) L 07/28/23 04:59 Globulin 2.8 g/dL (1.3-4.6) 07/28/23 04:59 Triglycerides 98 mg/dL (0-150) 07/28/23 04:59 Cholesterol 172 mg/dL (0-200) 07/28/23 04:59 LDL Cholesterol, Calc 114 mg/dL (50-129) 07/28/23 04:59 Total VLDL Cholesterol 20 mg/dL (0-30) 07/28/23 04:59 HDL Cholesterol 38 mg/dL (60-100) L 07/28/23 04:59 Cholesterol/HDL Ratio 4.53 mg/dL (0.0-4.40) H 07/28/23 04:59 Vitamin B12 1967 pg/mL (232-1245) H 07/27/23 04:52 Folate 17.1 ng/mL (4.8-37.3) 07/28/23 04:59 TSH 1.12 uIU/mL (0.27-4.20) 07/25/23 12:22 Urine Color Yellow (Yellow) 07/25/23 14:10 Urine Appearance Clear (CLEAR) 07/25/23 14:10 Urine pH 5 (5-7) 07/25/23 14:10 Ur Specific [place] 1.015 (1.005-1.030) 07/25/23 14:10 Urine Protein Neg (Negative) 07/25/23 14:10 Urine Glucose (UA) Norm (Normal) 07/25/23 14:10 Urine Ketones Negative (Negative) 07/25/23 14:10 Urine Blood 2+ (Negative) H 07/25/23 14:10 Urine Nitrate Negative (Negative) 07/25/23 14:10 Urine Bilirubin Neg (Negative) 07/25/23 14:10 Urine Urobilinogen Norm mg/dL (Negative) 07/25/23 14:10 Ur Leukocyte Esterase Negative (Negative) 07/25/23 14:10 Urine RBC 5-10 /hpf (0-2) H 07/25/23 14:10 Urine WBC 0-4 /hpf (0-5) H 07/25/23 14:10 Ur Squamous Epith Cells 0-4 /hpf (0-5) H 07/25/23 14:10 Amorphous Sediment Not Reportable 07/25/23 14:10 Urine Bacteria Trace /hpf (NONE) 07/25/23 14:10 Urine Mucus 1+ /hpf 07/25/23 14:10 Vitals Last Vital Signs Temp 98.4 F 07/28/23 08:00 Pulse 65 07/28/23 08:00 Resp 17 07/28/23 08:00 BP 106/57 07/28/23 08:00 Pulse Ox 95 07/28/23 08:00 O2 Del Method Room Air 07/28/23 08:00 O2 Flow Rate 1 07/26/23 16:00 Discharge Plan Discharge Patient Disposition: Home Health Service Condition: Stable Prescriptions: Continued allopurinol 300 mg tablet 300 mg PO QAM oxybutynin chloride 10 mg tablet extended release 24hr 10 mg PO QAM multivitamin Tablet 1 tab PO QAM omega-3 fatty acids [Fish Oil Concentrate] 1,000 mg capsule 1,000 mg PO QAM levothyroxine 88 mcg tablet 88 mcg PO DAILY@22 Patient Comments: 1 tablet Thursday through Thursday half tablet on Thursday pantoprazole 40 mg tablet,delayed release (DR/EC) 40 mg PO BID All Day Allergy (cetirizine) 10 mg capsule 10 mg PO DAILY acetaminophen 325 mg tablet 325 mg PO QID PRN (Reason: Pain) cyanocobalamin (vitamin B-12) 1,000 mcg Tablet, Sublingual 1,000 mcg SUBLINGUAL QAM timolol maleate 0.5 % drops 1 drp ophthalmic (eye) BID Rx Instructions: each eye Probiotic 3 billion cell Capsule 3,000 mmu cells PO DAILY Rx Instructions: administer with a meal Held lisinopril 10 mg Tablet 10 mg PO DAILY Hold Instructions: Resume on 07/28/23. Discharge Orders: Discharge Order (Routine); Ordered 07/28/23 Ordered By: Steven Alonso Referrals: [facility] ([facility]) [Outside] Good Albert DO [Physician] - 08/11/23 2:45 pm Morton,DESTINEE Fowler [Primary Care Provider] - 08/06/23 1:40 pm Discharge Diet: Advance as tolerated Discharge Activity: Limit activity as instructed Patient Instructions: Joint Replacement Surgery (DC), Opioid Safety Activity Restrictions/Additional Instructions: You are being discharged from the hospital today during which time you have been under the care of Dr Albert. You had a Left hip fracture. You were treated for this injury with a Geovani Arthroplasty which is a partial hip replacement. You may resume you normal diet (including any special diets as directed by your primary doctor) as well as your home medications. You should follow up with you primary doctor if you have any questions regarding medication you took prior to your stay in the hospital. You may take your pain medication as prescribed. After the first few days, take your pain medication as needed. Do not drive or drink alcohol while taking your pain medication. Your injury may increase your risk of developing a blood clot,or DVT, in your arm or leg. This could potentially dislodge and travel to your lungs and become a life threatening condition called apulmonary embolus,or PE. You have been prescribed eliquis to be taken to prevent this. Frequent movement of the legs will also help prevent this from occurring. If you develop any new or worsening cough, chestpain, bloody sputum or shortness of breath, call 911 or go to the EmergencyRoom. Always keep your surgical incision/dressing clean and dry. If you experience increasing pain at your incision site, redness, swelling, increasing discharge, foul odors, or fevers (greater than 100.4), night sweats or chills you should call the office at the above number. If you feel this is an emergency you should be evaluated in the Emergency Department of a nearby hospital. Orthopedic Patient Instructions Summary: Weight Bearing: WBAT Activity: as tolerated. Diet: regular. Wound Care: Keep dressing clean and dry. Change as needed Anticoagulation: Lovenox Pain Medication: Take only as needed. Ice, rest and elevation will be of great benefit. Please plan to follow-up [facility] Dr Albert in 2 weeks. You will need to call the clinic [phone] to schedule. Do not hesitate to call the office with any questions or concerns. Hold off on lisinopril for next 10 days. Check your blood pressure daily at home maintain a blood pressure diary and follow-up with a primary care provider within next 10 days for further adjustment of antihypertensives as needed. Discharge Attestations Time Spent in Discharge Care*: greater than 30 min Specific Discharge Activities: educating patient, educating and/or supporting family/caregiver, discussing with pcp/other providers, discussing with home health care case manager/social workers/dc planners, documenting/other paperwork and evaluating patient/reviewing data Status at Discharge: Cognitive status at discharge: cognitively intact, Behavioral status at discharge: cooperative, Functional status at discharge: uses cane/walker, Overall status at discharge: patient is progressing back to baseline Quality Metrics Clinical Quality Measures [ No reported AMI, CVA or VTE this stay] Coding Level of Care Code 67631 Total time (in minutes) for Discharge: 60 Diagnoses Closed fracture of left hip S72.002A Goals of care, counseling/discussion Z71.89
[2023-07-28] MEDS: acetaminophen 325 mg Tablet 650 MG PO (11:25)
[2023-07-28 12:23] VITALS: BP 106/57; PULSE 65; RESP 17; TEMP 36.9; O2SAT 95
--- NOTE | 2023-07-28 12:25 | PC.NURSE ---
Discharge instructions given to patient and daughter. No questions at this time. All belongings with pt. Wheeled to private vehicle via wheelchair.
--- NOTE | 2023-07-28 12:28 | PC.SOCIAL ---
IMM Update pg 2 of IMM updated and reviewed w/ patient. Copy provided and copy dated, initialed and placed in chart.
== END 2023-07-28 12:00 | disposition home health service (06) | DRG 522 ==
LOC: ER 12:28 → MEDSURG 12:31
PROVIDERS: Orthopaedic Surgery; Admitting Provider Internal Medicine; Emergency Provider Emergency Medicine; PCP Nurse Practitioner Family; Visit Provider Student in an Organized Health Care Education/Training Program
PROC: 0SRS0JZ Replacement of Left Hip Joint, Femoral Surface with Synthetic Substitute, Open Approach (ICD-10-PCS; CPT 27125; principal; 2023-07-26 08:00)
DX: S72.012A Unspecified intracapsular fracture of left femur, initial encounter for closed fracture (principal); W01.0XXA Fall on same level from slipping, tripping and stumbling without subsequent striking against object, initial encounter; H54.40 Blindness, one eye, unspecified eye; R00.1 Bradycardia, unspecified; K21.9 Gastro-esophageal reflux disease without esophagitis; M10.9 Gout, unspecified; I10 Essential (primary) hypertension; M81.0 Age-related osteoporosis without current pathological fracture; M19.90 Unspecified osteoarthritis, unspecified site; Z96.653 Presence of artificial knee joint, bilateral; E03.9 Hypothyroidism, unspecified; K44.9 Diaphragmatic hernia without obstruction or gangrene
CPT/HCPCS: 36415; 51702; 71045; 73502; 80048; 80053; 80061; 81001; 82607; 82746; 83036; 83540; 83550; 83735; 84443; 85025; 93005; 96372; 96374; 97110; 97116; 97163; 97165; 97530; 97535; 99285; C1776; J0690; J1170; J1644; J1650; J2270; J2371; J2704; J3010; J3475; J3490; J7030; P9045

== ENCOUNTER → 2023-08-11 14:21 | Outpatient (BNVA) | payer MEDICARE, OTHER, SELFPAY | PROVIDERS: PCP Nurse Practitioner Family; Visit Provider Physician Assistant | DX: Z98.890 Other specified postprocedural states; Z96.649 Presence of unspecified artificial hip joint | CPT/HCPCS: 73502 ==

== ENCOUNTER 2023-08-11 15:30 | Outpatient (CLI) | payer MEDICARE, OTHER, SELFPAY ==
--- NOTE | 2023-08-11 15:39 | XRR_ITS ---
PROCEDURE INFORMATION: Exam: XR Right Wrist Exam date and time: 08/11/2023 3:46 PM Age: 78 years old Clinical indication: Pain and injury or trauma; Fall; Blunt trauma (contusions or hematomas); Wrist; Right; Injury date: 3 weeks ago; Additional info: Right hand pain TECHNIQUE: Imaging protocol: Radiologic exam of the right wrist. Views: 1 or 2 views. COMPARISON: No relevant prior studies available. FINDINGS: Bones/joints: Impacted nonacute fracture distal radius with slight dorsal tilt of the articular surface. Degenerative changes within the wrist. Osteopenia. Soft tissues: Normal. XR/XR wrist RT 2V [id number] IMPRESSION: Impacted nonacute fracture distal radius with slight dorsal tilt of the articular surface.
--- NOTE | 2023-08-11 15:39 | XRR_ITS ---
PROCEDURE INFORMATION: Exam: XR Right Hand Exam date and time: 08/11/2023 3:46 PM Age: 78 years old Clinical indication: Pain and injury or trauma; Fall; Blunt trauma (contusions or hematomas); Hand; Right; Injury date: 3 weeks ag; Additional info: Right wrist pain TECHNIQUE: Imaging protocol: Radiologic exam of the right hand. Views: 3 or more views. COMPARISON: No relevant prior studies available. FINDINGS: Bones/joints: Substantial deforming arthropathy with joint space loss, subchondral sclerosis and osteophytosis in the small joints of the fingers most prominently. To a lesser extent there is involvement lateral portion of carpus and 1st carpometacarpal articulation. Impacted possibly nonacute fracture of distal radius with slight dorsal tilt of the articular surface. Osteopenia. Soft tissues: Normal. XR/XR hand RT min 3V* [id number] IMPRESSION: Impacted possibly nonacute fracture of distal radius with slight dorsal tilt of the articular surface. Changes of osteoarthritis.
== END 2023-08-11 15:31 | disposition home or self-care (01) ==
LOC: RAD 15:33
PROVIDERS: PCP Nurse Practitioner Family; Visit Provider Nurse Practitioner Family
DX: S52.591A Other fractures of lower end of right radius, initial encounter for closed fracture (principal); W19.XXXA Unspecified fall, initial encounter; M19.041 Primary osteoarthritis, right hand; M79.641 Pain in right hand; M25.531 Pain in right wrist
CPT/HCPCS: 73100; 73130; 99024

== ENCOUNTER → 2023-09-08 12:56 | Outpatient (BNVA) | payer MEDICARE, OTHER, SELFPAY | PROVIDERS: PCP Nurse Practitioner Family; Visit Provider Physician Assistant | DX: Z47.89 Encounter for other orthopedic aftercare (principal); Z96.642 Presence of left artificial hip joint; R42 Dizziness and giddiness | CPT/HCPCS: 36415; 73502; 85007; 85027; 99024 ==

== ENCOUNTER 2023-09-23 06:00 | Outpatient (RCR) | payer MEDICARE, OTHER, SELFPAY | END 2023-09-24 23:59 | disposition home or self-care (01) | LOC: APT 06:00 | PROVIDERS: Visit Provider Physician Assistant | DX: Z98.890 Other specified postprocedural states (principal) | CPT/HCPCS: 97110; 97112; 97162; 97530 ==

== ENCOUNTER 2023-09-25 06:00 | Outpatient (RCR) | payer MEDICARE, OTHER, SELFPAY | END 2023-10-25 23:59 | disposition home or self-care (01) | LOC: APT 06:00 | PROVIDERS: Visit Provider Physician Assistant | DX: Z98.890 Other specified postprocedural states (principal) | CPT/HCPCS: 97110; 97530 ==

== ENCOUNTER → 2023-10-15 10:42 | Outpatient (BNVA) | payer MEDICARE, OTHER, SELFPAY | PROVIDERS: Visit Provider Physician Assistant | DX: S72.002D Fracture of unspecified part of neck of left femur, subsequent encounter for closed fracture with routine healing; X58.XXXD Exposure to other specified factors, subsequent encounter; Z96.642 Presence of left artificial hip joint | CPT/HCPCS: 73502; 99024 ==

== ENCOUNTER 2023-10-26 06:00 | Outpatient (RCR) | payer MEDICARE, OTHER, SELFPAY | END 2023-11-25 23:59 | disposition home or self-care (01) | LOC: APT 06:00 | PROVIDERS: Visit Provider Physician Assistant | DX: Z98.890 Other specified postprocedural states (principal) | CPT/HCPCS: 97110; 97112; 97530 ==

== ENCOUNTER → 2023-11-19 14:14 | Outpatient (BNVA) | payer MEDICARE, OTHER, SELFPAY | PROVIDERS: Visit Provider Nurse Practitioner Family | DX: I10 Essential (primary) hypertension (principal) | CPT/HCPCS: 99213 ==

== ENCOUNTER 2023-11-26 06:00 | Outpatient (RCR) | payer MEDICARE, OTHER, SELFPAY | END 2023-12-24 23:59 | disposition home or self-care (01) | LOC: APT 06:00 | PROVIDERS: Visit Provider Physician Assistant | DX: Z98.890 Other specified postprocedural states (principal) | CPT/HCPCS: 97110; 97530 ==

== ENCOUNTER → 2024-01-14 13:56 | Outpatient (BNVA) | payer MEDICARE, OTHER, SELFPAY | PROVIDERS: Visit Provider Orthopaedic Surgery | DX: Z96.649 Presence of unspecified artificial hip joint (principal) | CPT/HCPCS: 73502; 99213 ==

== ENCOUNTER → 2024-03-04 10:45 | Outpatient (BNVA) | payer MEDICARE, OTHER, SELFPAY | PROVIDERS: PCP Nurse Practitioner Family; Visit Provider Internal Medicine | DX: E03.9 Hypothyroidism, unspecified (principal); E07.9 Disorder of thyroid, unspecified; X58.XXXA Exposure to other specified factors, initial encounter; Z79.890 Hormone replacement therapy; M80.852A Other osteoporosis with current pathological fracture, left femur, initial encounter for fracture | CPT/HCPCS: 80053; 82306; 84439; 84443; 99214 ==

== ENCOUNTER 2024-03-25 09:23 | Oncology outpatient (recurring) (ONCR) | payer MEDICARE, OTHER, SELFPAY ==
[2024-03-25 10:32] VITALS: BP 144/65; PULSE 57; RESP 17; TEMP 36.3; O2SAT 98
[2024-03-25] MEDS: romosozumab-aqqg 210 mg/2.34 mL syr SUBCUT (11:16)
[2024-03-25 11:50] VITALS: BP 152/78; PULSE 62; RESP 16; TEMP 35.9; O2SAT 96
== END 2024-03-25 23:59 | disposition home or self-care (01) ==
PROVIDERS: PCP Nurse Practitioner Family; Visit Provider Internal Medicine
DX: M81.0 Age-related osteoporosis without current pathological fracture (principal)
CPT/HCPCS: 96372; J3111

== ENCOUNTER 2024-03-30 10:16 | Outpatient (CLI) | payer MEDICARE, OTHER, SELFPAY ==
--- NOTE | 2024-03-30 10:30 | MM_ITS ---
WS: [id number] BILATERAL SCREENING DIGITAL TOMOSYNTHESIS MAMMOGRAM WITH CAD HISTORY: SCREENING COMPARISON: 01/16/2023, 01/10/2022 Bilateral CC and MLO views with tomosynthesis and synthetic mammography submitted. Computer aided det ection analyzed. Breast composition: There are scattered areas of fibroglandular density. No suspicious masses, microc alcifications or architectural distortion. Breast arterial calcifications. MM/[place] [id number] IMPRESSION: BI-RADS: 2-Benign FOLLOW UP: 1 Year Follow-up
== END 2024-03-30 10:17 | disposition home or self-care (01) ==
LOC: RAD 10:17
PROVIDERS: PCP Nurse Practitioner Family; Visit Provider Nurse Practitioner Family
DX: Z12.31 Encounter for screening mammogram for malignant neoplasm of breast (principal); R92.323 Mammographic fibroglandular density, bilateral breasts; R92.1 Mammographic calcification found on diagnostic imaging of breast
CPT/HCPCS: 77063; 77067

== ENCOUNTER 2024-04-22 10:51 | Oncology outpatient (recurring) (ONCR) | payer MEDICARE, OTHER, SELFPAY ==
[2024-04-22 11:27] VITALS: BP 157/62; PULSE 48; RESP 17; TEMP 35.9; O2SAT 97
[2024-04-22] MEDS: romosozumab-aqqg 210 mg/2.34 mL syr SUBCUT (11:30)
== END 2024-04-24 23:59 | disposition home or self-care (01) ==
PROVIDERS: PCP Nurse Practitioner Family; Visit Provider Internal Medicine
DX: M81.0 Age-related osteoporosis without current pathological fracture (principal); Z79.620 Long term (current) use of immunosuppressive biologic
CPT/HCPCS: 96372; 96401; J3111

== ENCOUNTER 2024-05-20 08:43 | Oncology outpatient (recurring) (ONCR) | payer MEDICARE, OTHER, SELFPAY ==
[2024-05-20] MEDS: romosozumab-aqqg 210 mg/2.34 mL syr SUBCUT (09:22)
[2024-05-20 09:25] VITALS: BP 132/71; PULSE 52; RESP 16
== END 2024-05-25 23:59 | disposition home or self-care (01) ==
PROVIDERS: PCP Nurse Practitioner Family; Visit Provider Internal Medicine
DX: M81.0 Age-related osteoporosis without current pathological fracture (principal); Z79.899 Other long term (current) drug therapy
CPT/HCPCS: 96372; J3111

== ENCOUNTER 2024-06-24 08:59 | Oncology outpatient (recurring) (ONCR) | payer MEDICARE, OTHER, SELFPAY ==
[2024-06-24 09:16] VITALS: BP 164/68; PULSE 71; RESP 16; O2SAT 98
[2024-06-24] MEDS: romosozumab-aqqg 210 mg/2.34 mL syr SUBCUT (09:34)
== END 2024-06-25 23:59 | disposition home or self-care (01) ==
PROVIDERS: PCP Nurse Practitioner Family; Visit Provider Internal Medicine
DX: Z79.899 Other long term (current) drug therapy (principal); M81.0 Age-related osteoporosis without current pathological fracture
CPT/HCPCS: 96372; J3111

== ENCOUNTER 2024-07-22 12:49 | Outpatient (CLI) | payer MEDICARE, OTHER, SELFPAY ==
--- NOTE | 2024-07-22 13:00 | XR_ITS ---
WS: [id number] SCREENING DEXA SCAN [employer] [facility] [employer] CLINICAL INFORMATION: osteoporosis COMPARISON: 2021 FINDINGS: The L1-L4 bone mineral density measures 1.044 g/cm2. This corresponds to a T score score of -1.1 and Z score of 0.6. Left forearm bone mineral density measures 0.64. This corresponds to a T score of -2.7 and Z score of 0.1. XR/XR DEXA axial skeleton* [id number] IMPRESSION: Osteopenia lumbar spine. Osteoporosis LEFT forearm. Bone mineral density lumbar spine increased 3.9% bone mineral density LEFT forearm decreased -9.3%
== END 2024-07-22 12:50 | disposition home or self-care (01) ==
LOC: RAD 12:51
PROVIDERS: PCP Nurse Practitioner Family; Visit Provider Internal Medicine
DX: Z13.820 Encounter for screening for osteoporosis (principal); M81.0 Age-related osteoporosis without current pathological fracture; M85.80 Other specified disorders of bone density and structure, unspecified site
CPT/HCPCS: 77080

== ENCOUNTER → 2024-08-04 15:27 | Outpatient (BNVA) | payer MEDICARE, OTHER, SELFPAY | PROVIDERS: PCP Nurse Practitioner Family; Visit Provider Orthopaedic Surgery | DX: S72.141A Displaced intertrochanteric fracture of right femur, initial encounter for closed fracture (principal); X58.XXXA Exposure to other specified factors, initial encounter; Z96.649 Presence of unspecified artificial hip joint | CPT/HCPCS: 73502; 99213 ==

== ENCOUNTER → 2024-12-01 14:27 | Outpatient (BNVA) | payer MEDICARE, OTHER, SELFPAY | PROVIDERS: PCP Nurse Practitioner Family; Visit Provider Internal Medicine | DX: I10 Essential (primary) hypertension (principal); Z86.73 Personal history of transient ischemic attack (TIA), and cerebral infarction without residual deficits | CPT/HCPCS: 99214 ==

== ENCOUNTER → 2025-09-12 13:04 | Outpatient (BNVA) | payer MEDICARE, OTHER, SELFPAY | PROVIDERS: PCP Nurse Practitioner Family; Visit Provider Internal Medicine | DX: I10 Essential (primary) hypertension (principal) | CPT/HCPCS: 99213 ==